=== PATIENT | female | born 1950 | race Caucasian/White ===

== ENCOUNTER 2018-07-06 13:10 | Outpatient (CLI) | payer MEDICARE, OTHER ==
[2018-07-06 14:24] LABS: FREE T4 (FREE THYROXINE) 0.9 NG/DL (0.70-1.48)
--- NOTE | 2018-07-06 19:35 | Diagnostic Imaging Report ---
PROCEDURE: US Thyroid. TECHNIQUE: Multiple real-time grayscale images were obtained of the thyroid in various projections. INDICATION: Thyroid cyst. COMPARISON: There are no prior studies available for comparison. FINDINGS: The thyroid gland is not enlarged. The right lobe measures 4.0 x 1.5 x 1.5 cm while the left lobe is estimated to be 3.1 x 1.7 x 1.4 cm (normal gland size 4-5 x 2 x 2 cm or less). In the superior pole of the right lobe, there is a small 3 x 2 x 2 mm hypoechoic area with a small echogenic density along the periphery. This finding is of uncertain etiology although most likely a benign process. The lobes of the thyroid are otherwise homogeneous. The isthmus is unremarkable. IMPRESSION: 1. The thyroid gland is not enlarged. 2. The minute hypoechoic area in the right lobe of the thyroid is of uncertain etiology although most likely benign. If further evaluation of this finding is desired, then a short-term (six-month) followup ultrasound exam would be recommended. Dictated by: Dictated on workstation # [id number]
== END 2018-07-06 14:45 | disposition home or self-care (01) ==
LOC: RAD 13:10
PROVIDERS: ATTEND Otolaryngology Otolaryngology/Facial Plastic Surgery
DX: E04.1 Nontoxic single thyroid nodule (principal); G47.33 Obstructive sleep apnea (adult) (pediatric)
CPT/HCPCS: 36415; 76536; 84439; 84443

== ENCOUNTER 2018-08-06 20:19 | Outpatient (CLI) | payer MEDICARE, OTHER | END 2018-08-07 06:20 | disposition home or self-care (01) | LOC: SLEEP 20:19 | PROVIDERS: ATTEND Otolaryngology Otolaryngology/Facial Plastic Surgery | DX: G47.33 Obstructive sleep apnea (adult) (pediatric) (principal) | CPT/HCPCS: 95811 ==

== ENCOUNTER 2018-11-27 21:42 | Outpatient (CLI) | payer MEDICARE, OTHER | END 2018-11-28 06:45 | disposition home or self-care (01) | LOC: SLEEP 21:42 | PROVIDERS: ATTEND Otolaryngology Otolaryngology/Facial Plastic Surgery | DX: G47.33 Obstructive sleep apnea (adult) (pediatric) (principal) | CPT/HCPCS: 95811 ==

== ENCOUNTER → 2021-03-22 | Outpatient (CLI) | payer MEDICARE, OTHER ==
--- NOTE | 2021-03-23 09:36 | Diagnostic Imaging Report ---
EXAMINATION: Digital mammogram bilateral screening with CAD. INDICATION: Screening. COMPARISON: This study was compared to the prior exams of 03/20/2020 and 02/26/2019. PERSONAL HISTORY: At this time, there are no current complaints. FINDINGS: There are scattered fibroglandular densities in both breasts which could obscure a lesion. Overall, there does not appear to have been any significant change when compared to the prior exam. No primary or secondary sign of malignancy is noted. Small benign-appearing nodular densities are again seen in the left breast. IMPRESSION: There is no evidence for malignancy. ACR BI-RADS Category 1: Negative. Result letter will be mailed to the patient. Note: At least 10% of breast cancer is not imaged by mammography. Dictated by: Dictated on workstation # [id number]
== END ==
LOC: RAD 11:00
PROVIDERS: ATTEND Physician Assistant
DX: Z12.31 Encounter for screening mammogram for malignant neoplasm of breast (principal)
CPT/HCPCS: 77063; 77067

== ENCOUNTER → 2021-04-01 | Outpatient (CLI) | payer MEDICARE, OTHER ==
--- NOTE | 2021-04-01 13:47 | Diagnostic Imaging Report ---
PROCEDURE: US Thyroid. TECHNIQUE: Multiple real-time grayscale images were obtained of the thyroid in various projections. INDICATION: Thyroid mass. Compared with study 07/06/2018. FINDINGS: Findings of right thyroid lobe measured 4.2 x 1.5 x 1.6 cm, it showed normal color Doppler blood flow. In the upper pole there is a mixed echotexture, a tiny circumscribed stable benign 5 mm nodule with a likely benign calcification. Within the lower pole of the right thyroid lobe, there is a hypoechoic area with some curvilinear zones of internal hyperechogenicity and measures a maximal diameter of 8 mm. This is not appreciable on the prior and despite its size of being less than 1 cm, we should consider this a new lesion, I do feel a one-year followup is appropriate for this TI-RADS 4 lesion. The left thyroid lobe is nonfocal, stable and normal in size. No solid or cystic mass. The isthmus normal. There is normal color Doppler blood flow. IMPRESSION: 1. Newly apparent hypoechoic 8 mm nodule. There is likely some curvilinear internal calcifications that have become apparent in the lower pole of the right lobe despite its small size given its apparent development, a one-year followup is recommended for this TI-RADS 4 lesion. 2. Additional stable 5 mm benign nodule right lobe incidentally noted with negative left lobe. Dictated by: Dictated on workstation # [id number]
--- NOTE | 2021-04-01 16:02 | Diagnostic Imaging Report ---
INDICATION: Hypercalcemia. EXAMINATION: SPECT-CT parathyroid scan. 20.5 mCi of technetium 99m sestamibi was given. A few CT images were reconstructed and reviewed. There is activity in the salivary glands. There does not appear to be any abnormal activity in the thyroid bed or elsewhere. IMPRESSION: Unremarkable parathyroid SPECT scan. Dictated by: Dictated on workstation # [id number]
== END ==
LOC: RAD 12:00
PROVIDERS: ATTEND Nurse Practitioner Family
DX: E04.1 Nontoxic single thyroid nodule (principal); E83.52 Hypercalcemia
CPT/HCPCS: 76536; 78072; A9500

== ENCOUNTER → 2021-05-31 | Outpatient (CLI) | payer MEDICARE ==
[~2021-05-31] MED LIST: GADOTERATE 0.5 MMOL/ML (CLARISCAN) 20 ML VIAL IV ONE
--- NOTE | 2021-05-31 11:27 | Diagnostic Imaging Report ---
PROCEDURE: MR imaging of the brain with and without contrast. TECHNIQUE: Multiplanar, multisequence MR imaging of the brain was performed with and without contrast. INDICATION: Increasing headaches. No prior studies are available for comparison. The ventricles and sulci are within normal limits. There are moderate periventricular and subcortical white matter changes noted consistent with chronic microvascular ischemia. No diffusion restriction is identified. No acute intra-axial or extra-axial hemorrhage is detected. No abnormal enhancement is identified following contrast administration. Corpus callosum is unremarkable. The sella and parasellar structures are unremarkable. IMPRESSION: Changes of chronic microvascular ischemia. The study is otherwise unremarkable. Dictated by: Dictated on workstation # [id number]
== END ==
LOC: RAD 10:15
PROVIDERS: ATTEND Nurse Practitioner Family
DX: I67.82 Cerebral ischemia (principal)
CPT/HCPCS: 70553

== ENCOUNTER 2021-08-15 08:20 | Inpatient (IN) | payer MEDICARE ==
[~2021-08-15] VITALS: Ht 154 cm; Wt 111.6 kg
[2021-08-15] MEDS ORDERED: LACTATED RINGERS 1,000 ML IV ONE (08:45)
[2021-08-15 08:55] LABS: BASOPHILS % (AUTO) 0 % (0-10); EOSINOPHILS % (AUTO) 0 % (0-10); HEMATOCRIT 37 % (35-52); HEMOGLOBIN 11.9 g/dL (11.5-16.0); LYMPHOCYTES # (AUTO) 0.8 10^3/uL (1.0-4.0); LYMPHOCYTES % (AUTO) 6 % (12-44); MEAN CORPUSCULAR HEMOGLOBIN 27 pg (25-34); MEAN CORPUSCULAR HGB CONC 32 g/dL (32-36); MEAN CORPUSCULAR VOLUME 84 fL (80-99); MEAN PLATELET VOLUME 11.3 fL (9.0-12.2); MONOCYTES # (AUTO) 0.5 10^3/uL (0.0-1.0); MONOCYTES % (AUTO) 4 % (0-12); NEUTROPHILS # (AUTO) 10.6 10^3/uL (1.8-7.8); NEUTROPHILS % (AUTO) 89 % (42-75); PLATELET COUNT 311 10^3/uL (130-400); WHITE BLOOD COUNT 11.9 10^3/uL (4.3-11.0)
[2021-08-15] MEDS ORDERED: RT-ALBUTEROL HFA 8.5 GM INHALER IH STA (08:58)
[2021-08-15] MEDS ORDERED: ONDANSETRON 4 MG/2 ML (SDV) Z0FRAN IVP ONE ×2 (09:00→09:45)
[2021-08-15 09:04] LABS: ALBUMIN 3.8 GM/DL (3.2-4.5)
[2021-08-15 09:05] LABS: INR 1.2 (0.8-1.4); POTASSIUM 2.9 MMOL/L (3.6-5.0); PROTHROMBIN TIME PATIENT 15.7 SEC (12.2-14.7)
[2021-08-15 09:06] LABS: CALCIUM 8.9 MG/DL (8.5-10.1)
[2021-08-15 09:07] LABS: TOTAL PROTEIN 7.3 GM/DL (6.4-8.2)
[2021-08-15 09:09] LABS: BILIRUBIN,TOTAL 0.6 MG/DL (0.1-1.0)
[2021-08-15 09:11] LABS: CREATININE SERUM 0.88 MG/DL (0.60-1.30)
[2021-08-15 09:25] LABS: LYMPHOCYTES % (MANUAL) 7 %; MONOCYTES % (MANUAL) 7 %; NEUTROPHILS % (MANUAL) 86 %; RBC MORPH NORMAL
[2021-08-15] MEDS ORDERED: POTASSIUM CL 10MEQ/50ML IVPB 50 ML IV ONE (09:30)
[2021-08-15] MEDS ORDERED: NS IV 1000 ML 1,000 ML IV SCH (09:30)
[2021-08-15] MEDS ORDERED: LORazepam INJ 2 MG/ML (ATIVAN) VIAL IVP ONE (09:45)
--- NOTE | 2021-08-15 09:47 | Diagnostic Imaging Report ---
INDICATION: Shortness of air, nausea, vomiting, diarrhea for approximately one week. Fever. Decreased oxygen saturation. TECHNIQUE: Two view chest 9:37 AM CORRELATION STUDY: None FINDINGS: Heart size is enlarged. There is abnormal prominent masslike appearance about the superior mediastinum, left slightly greater than right. Vasculature overall appears prominent. Rather extensive asymmetric infiltrate-like opacity particularly at the right middle lobe but also with scattered pulmonary parenchymal densities including some areas of nodularity within the remaining lung quintanilla. Visualized osseous structures are unremarkable. IMPRESSION: 1. Multifocal pulmonary infiltrate like opacities most pronounced in the right middle lobe most worrisome for pneumonia. 2. Some scattered areas of nodularity within the lung quintanilla. Additionally, there is abnormal soft tissue masslike appearance about the superior mediastinum. Does raise concern for potential mass and/or lymphadenopathy until proven otherwise. Neoplasm is definitely in the differential at this time. Dictated by: Dictated on workstation # [id number]
[2021-08-15] MEDS ORDERED: ACETAMINOPHEN 500 MG TAB (TYLENOL) ONE (10:11)
[2021-08-15] MEDS ORDERED: ACETAMINOPHEN 500 MG TAB (TYLENOL) PO ONE (10:15)
[2021-08-15] MEDS ORDERED: cefTRIAXone 1 GM PRE-MIX 50 ML IV STA (10:18)
--- NOTE | 2021-08-15 10:27 | ED General ---
General Chief Complaint: COVID19 Suspect/Confirmed Stated Complaint: SOA - COUGH - CONGESTION - BODY ACHES Nursing Triage Note: PT TO RM 10 CO OF SOA, N/V/D FOR APPROX 1WEEK. PT ALSO HAS TEMP 101.6. O2 SAT 84%RM AIR Source of Information: Patient Exam Limitations: No Limitations History of Present Illness Date Seen by Provider: Aug 15, 2021 Time Seen by Provider: 08:27 Initial Comments This 70-year-old woman presents to the emergency room with 1 week of illness including cough, fever up to 101, vomiting, and diarrhea. She is febrile at present with an oxygen saturation of 84% on room air. She has been vaccinated for influenza and COVID-19. She has received boosters for COVID-19. 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 Her primary care providers are [facility] Lucio and Dr. Moffett. She sees an web development director in [place]. Allergies and Home Medications Allergies Coded Allergies: No Known Drug Allergies (Unverified , 05/31/21) Patient Home Medication List Home Medication List Reviewed: Yes Alprazolam (Alprazolam) 0.5 Mg Tablet, 0.5 MG PO HS PRN for SLEEP, (Reported) Entered as Reported by: DEXTER KIM on 08/15/211253 Last Action: Reviewed Amlodipine Besylate (Amlodipine Besylate) 10 Mg Tablet, 10 MG PO DAILY, (Reported) Entered as Reported by: DONNELL WRIGHT on 08/16/21 1149 Last Action: Reviewed Atorvastatin Calcium (Atorvastatin Calcium) 80 Mg Tablet, 80 MG PO DAILY, (Reported) Entered as Reported by: DEXTER KIM on 08/15/21 125 Last Action: Reviewed Bupropion HCl (Bupropion Xl) 150 Mg Tab.er.24h, 150 MG PO DAILY, (Reported) Entered as Reported by: DEXTER KIM on 08/15/21 125 Last Action: Reviewed Calcium Carbonate (Tums) 200 Mg Calcium (500 Mg) Tab.chew, 200 MG PO DAILY PRN for HEARTBURN, (Reported) Entered as Reported by: DONNELL WRIGHT on 08/16/21 1152 Last Action: Reviewed Carvedilol (Carvedilol) 12.5 Mg Tablet, 12.5 MG PO BID, (Reported) Entered as Reported by: DONNELL WRIGHT on 08/16/211148 Last Action: Reviewed Citalopram Hydrobromide (Citalopram HBr) 20 Mg Tablet, 20 MG PO BID, (Reported) Entered as Reported by: DEXTER KIM on 08/15/211253 Last Action: Reviewed Dicyclomine HCl (Dicyclomine HCl) 20 Mg Tablet, 20 MG PO HS, (Reported) Entered as Reported by: DEXTER KIM on 08/15/211253 Last Action: Reviewed Docusate Sodium (Stool Softener) 100 Mg Capsule, 100 MG PO DAILY PRN for CONSTIPATION-1ST LINE, (Reported) Entered as Reported by: DONNELL WRIGHT on 08/16/21 115 Last Action: Reviewed Fluticasone Propionate (Fluticasone Propionate) 50 Mcg/Actuation [place].susp, 1 SPRAY NS DAILY PRN for CONGESTION, (Reported) Entered as Reported by: DEXTER KIM on 08/15/211253 Last Action: Reviewed Glucosam HCl/Chondro Bah A/C/Mn (Glucosamine-Chondroitin Cap) 1 Each Capsule, 1 EACH PO DAILY, (Reported) Entered as Reported by: DONNELL WRIGHT on 08/16/211148 Last Action: Reviewed Hydralazine HCl (Hydralazine HCl) 50 Mg Tablet, 50 MG PO TID, (Reported) Entered as Reported by: DEXTER KIM on 08/15/211253 Last Action: Reviewed Hydrocodone/Acetaminophen (Hydrocodone-Acetamin 7.5-325) 7.5 Mg-325 Mg Tablet, 1 EACH PO Q6H PRN for PAIN-MODERATE (5-7), (Reported) Entered as Reported by: DONNELL WRIGHT on 08/16/211148 Last Action: Reviewed Levalbuterol Tartrate (Xopenex Hfa) 45 Mcg/Actuation Hfa.aer.ad, 1 PUFF PO DAILY PRN for SHORTNESS OF BREATH, (Reported) Entered as Reported by: DEXTER KIM on 08/15/211253 Last Action: Reviewed Loratadine (Loratadine) 10 Mg Tablet, 10 MG PO DAILY PRN for ALLERGIES, (Reported) Entered as Reported by: DONNELL WRIGHT on 7/11/22 1149 Last Action: Reviewed Magnesium Oxide (Magnesium) 250 Mg Tablet, 250 MG PO DAILY, (Reported) Entered as Reported by: DONNELL WRIGHT on 08/16/21 1151 Last Action: Reviewed Olmesartan Medoxomil (Olmesartan Medoxomil) 20 Mg Tablet, 20 MG PO DAILY, (Reported) Entered as Reported by: DEXTER KIM on 08/15/21 1254 Last Action: Reviewed Omeprazole (Omeprazole) 20 Mg Capsule.dr, 20 MG PO DAILY, (Reported) Entered as Reported by: DONNELL WRIGHT on 08/16/21 1150 Last Action: Reviewed Pantoprazole Sodium (Pantoprazole Sodium) 40 Mg Tablet.dr, 40 MG PO HS, (Reported) Entered as Reported by: DONNELL WRIGHT on 08/16/21 1204 Last Action: Reviewed Valsartan (Valsartan) 320 Mg Tablet, 320 MG PO DAILY, (Reported) Entered as Reported by: DEXTER KIM on 08/15/21 125 Last Action: Reviewed Discontinued Medications Amlodipine/Atorvastatin (Amlodipine-Atorvast 10-10 mg) 10 Mg-10 Mg Tablet, 1 EACH PO DAILY, (Reported) Discontinued Reason: Prescription changed Entered as Reported by: DEXTER KIM on 08/15/211253 Last Action: New Order Carvedilol (Carvedilol) 25 Mg Tablet, 25 MG PO BID, (Reported) Discontinued Reason: Prescription changed Entered as Reported by: DEXTER KIM on 08/15/211253 Last Action: New Order Review of Systems Review of Systems Constitutional: see HPI EENTM: no symptoms reported Respiratory: see HPI Cardiovascular: no symptoms reported Gastrointestinal: see HPI Genitourinary: no symptoms reported : No Musculoskeletal: no symptoms reported Skin: no symptoms reported Psychiatric/Neurological: No Symptoms Reported Hematologic/Lymphatic: No Symptoms Reported Immunological/Allergic: no symptoms reported Past Rdflrcj-Mwnrnr-Recyba Hx Patient Social History Tobacco Use?: No Substance use?: No Alcohol Use?: No Pt feels they are or have been: No Immunizations Up To Date Influenza Vaccine Up-to-Date: Yes; Up-to-Date First/Initial COVID19 Vaccinat: 2020 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 Past Medical History Surgery/Hospitalization HX: R KNEE, WRIST, HYSTERECTOMY, PARATHYROID REMOVED JUNE 2021 Surgeries: Yes (partial parathryroid resection) Hysterectomy, Orthopedic Respiratory: Yes Asthma Cardiac: Yes Hypertension Neurological: No : No Genitourinary: No Gastrointestinal: No Musculoskeletal: No Endocrine: Yes (possible pheochromocytoma) Parathyroid Disease HEENT: No Cancer: No Psychosocial: No Integumentary: No Physical Exam-Suspected Sepsis Physical Exam Vital Signs Vital Signs - First Documented 08/15/21 08/16/21 08:20 01:45 Temp 38.8 Pulse 112 Resp 42 B/P (MAP) 180/73 (108) Pulse Ox 92 O2 Delivery Nasal Cannula O2 Flow Rate 3.00 FiO2 32 Capillary Refill : Less Than 3 Seconds Blood Pressure Mean: 108 Height, Weight, BMI Height: '" Weight: lbs. oz. kg; 38.00 BMI Method: General Appearance: No Apparent Distress, WD/WN HEENT: PERRL/EOMI, Normal ENT Inspection Neck: Normal Inspection Respiratory: No Accessory Muscle Use, No Respiratory Distress, Decreased Breath Sounds (Diminished breath sounds throughout) Cardiovascular: No Edema, No Murmur, Tachycardia Gastrointestinal: Soft Extremity: Normal Inspection, Non Tender, No Pedal Edema Neurologic/Psychiatric: Alert, Oriented x3, No Motor/Sensory Deficits, Normal Mood/Affect, purchasing director II-XII Norm as Tested Skin: normal color, warm/dry Focused Exam Sepsis Stage: Severe Sepsis Possible Source: Pulmonary Lactate Level 08/15/21 08:32: Lactic Acid Level 2.55*H 08/15/21 12:00: Lactic Acid Level 1.06 Time of Focused Exam: 10:20 Respiratory: No Accessory Muscle Use, No Respiratory Distress, Decreased Breath Sounds Cardiovascular: Regular Rate, Rhythm, No Edema, No Murmur Skin: normal color, warm/dry Lactic Acid Level Within 3hrs of presentation: Admin fluids, Admin ABX, Blood cultures prior to ABX's, Lactate level Progress/Results/Core Measures Suspected Sepsis SIRS Temperature: Pulse: 112 Respiratory Rate: 42 Laboratory Tests 08/15/21 08:32: White Blood Count 11.9H 08/16/21 06:48: White Blood Count 8.8 08/17/21 05:27: White Blood Count 8.9 Blood Pressure 180 /73 Mean: 108 08/15/21 08:32: Lactic Acid Level 2.55*H 08/15/21 12:00: Lactic Acid Level 1.06 Laboratory Tests 08/15/21 08:32: Creatinine 0.88, INR Comment 1.2, Platelet Count 311, Total Bilirubin 0.6 08/16/21 06:48: Creatinine 0.82, Platelet Count 241, Total Bilirubin 0.5 08/17/21 05:27: Creatinine 0.74, Platelet Count 264, Total Bilirubin 0.5 Results/Orders Lab Results Laboratory Tests Test 08/16/21 06:48 08/17/21 05:27 Range/Units White Blood Count 8.8 8.9 4.3-11.0 10^3/uL Red Blood Count 3.39 L 3.35 L 3.80-5.11 10^6/uL Hemoglobin 9.1 #L 9.2 L 11.5-16.0 g/dL Hematocrit 29 L 28 L 35-52 % Mean Corpuscular Volume 86 83 80-99 fL Mean Corpuscular Hemoglobin 27 28 25-34 pg Mean Corpuscular Hemoglobin Concent 31 L 33 32-36 g/dL Red Cell Distribution Width 14.6 H 14.7 H 10.0-14.5 % Platelet Count 241 264 130-400 10^3/uL Mean Platelet Volume 11.0 11.6 9.0-12.2 fL Immature Granulocyte % (Auto) 1 0 % Neutrophils (%) (Auto) 83 H 85 H 42-75 % Lymphocytes (%) (Auto) 11 L 9 L 12-44 % Monocytes (%) (Auto) 5 5 0-12 % Eosinophils (%) (Auto) 0 0 0-10 % Basophils (%) (Auto) 0 0 0-10 % Neutrophils # (Auto) 7.3 7.5 1.8-7.8 10^3/uL Lymphocytes # (Auto) 1.0 0.8 L 1.0-4.0 10^3/uL Monocytes # (Auto) 0.4 0.5 0.0-1.0 10^3/uL Eosinophils # (Auto) 0.0 0.0 0.0-0.3 10^3/uL Basophils # (Auto) 0.0 0.0 0.0-0.1 10^3/uL Immature Granulocyte # (Auto) 0.1 0.0 0.0-0.1 10^3/uL Sodium Level 135 135 135-145 MMOL/L Potassium Level 3.9 3.1 L 3.6-5.0 MMOL/L Chloride Level 103 104 98-107 MMOL/L Carbon Dioxide Level 20 L 20 L 21-32 MMOL/L Anion Gap 12 11 5-14 MMOL/L Blood Urea Nitrogen 14 13 7-18 MG/DL Creatinine 0.82 0.74 0.60-1.30 MG/DL Estimat Glomerular Filtration Rate 77 88 BUN/Creatinine Ratio 17 18 Glucose Level 95 92 70-105 MG/DL Calcium Level 8.0 L 8.4 L 8.5-10.1 MG/DL Corrected Calcium 8.8 9.1 8.5-10.1 MG/DL Total Bilirubin 0.5 0.5 0.1-1.0 MG/DL Aspartate Amino Transf (AST/SGOT) 50 H 50 H 5-34 U/L Alanine Aminotransferase (ALT/SGPT) 32 33 0-55 U/L Alkaline Phosphatase 73 99 40-136 U/L B-Type Natriuretic Peptide 231.8 H <100.0 PG/ML Total Protein 5.8 L 6.2 L 6.4-8.2 GM/DL Albumin 3.0 L 3.1 L 3.2-4.5 GM/DL Procalcitonin 1.71 H <0.10 NG/ML My Orders Medications Given in ED Vital Signs/I&O 08/17/21 08/17/21 08/17/21 08/17/21 07:00 07:15 07:49 08:46 Temp 37.2 Pulse 92 94 95 Resp 25 28 B/P (MAP) 132/74 (93) Pulse Ox 95 97 O2 Delivery NIV Bilevel NIV Bilevel O2 Flow Rate 65.00 65.00 08/17/21 08/17/21 08/17/21 08/17/21 10:36 11:48 13:00 14:42 Temp 36.4 Pulse 99 97 Resp 20 B/P (MAP) 122/72 (89) Pulse Ox 94 94 96 O2 Delivery Vapotherm Vapotherm Vapotherm O2 Flow Rate 30.00 90.00 30.00 30.00 FiO2 90 90 08/17/21 08/17/21 16:27 18:24 Temp 37.1 Pulse 100 Resp 18 B/P (MAP) 113/69 (84) Pulse Ox 97 96 O2 Delivery Vapotherm Vapotherm O2 Flow Rate 90.00 30.00 30.00 FiO2 90 Capillary Refill : Less Than 3 Seconds Blood Pressure Mean: 108 Progress Note : Progress Note Septic work-up was pursued. Influenza and COVID screening were negative. Patient was found to have pneumonia and was treated accordingly with Rocephin and azithromycin after blood cultures and lactic acid were drawn. She received Zofran, Tylenol, and albuterol. Case was reviewed with Dr. Roberts. Patient and Dr. Roberts were advised that x-ray suggests further follow-up imaging is recommended to differentiate abnormal chest x-ray findings. 2 L of IV fluid were infused. Potassium replacement was initiated by IV route. Diagnostic Imaging Diagonstic Imaging: Xray Plain Films/CT/US/NM/MRI: chest Comments NAME: JADON MYERS [facility] REC#: [id number] PT STATUS: REG ER : 1950 PHYSICIAN: JOSE RIVERA MD ADMIT DATE: 08/15/21/ER Signed Date of Exam:08/15/21 CHEST PA/LAT (2 VIEW) INDICATION: Shortness of air, nausea, vomiting, diarrhea for approximately one week. Fever. Decreased oxygen saturation. TECHNIQUE: Two view chest 9:37 AM CORRELATION STUDY: None FINDINGS: Heart size is enlarged. There is abnormal prominent masslike appearance about the superior mediastinum, left slightly greater than right. Vasculature overall appears prominent. Rather extensive asymmetric infiltrate-like opacity particularly at the right middle lobe but also with scattered pulmonary parenchymal densities including some areas of nodularity within the remaining lung quintanilla. Visualized osseous structures are unremarkable. IMPRESSION: 1. Multifocal pulmonary infiltrate like opacities most pronounced in the right middle lobe most worrisome for pneumonia. 2. Some scattered areas of nodularity within the lung quintanilla. Additionally, there is abnormal soft tissue masslike appearance about the superior mediastinum. Does raise concern for potential mass and/or lymphadenopathy until proven otherwise. Neoplasm is definitely in the differential at this time. Dictated by: Dictated on workstation # [id number] Dict: 08/15/21 0939 Trans: 08/15/21 1018 CLARITZA [id number] Interpreted by: BENJAMIN VO DO Electronically signed by: BENJAMIN VO DO 08/15/21 1018 Departure Communication (Admissions) Time/Spoke to Admitting Phy: 10:23 Dr. Roberts Impression Primary Impression: Severe sepsis Additional Impressions: Pneumonia Qualified Codes: J18.9 - Pneumonia, unspecified organism Hypokalemia Hypoxia Disposition: ADMITTED INPATIENT Condition: Stable Admissions Decision to Admit Reason: Admit from ER (General) Decision to Admit/Date: Aug 15, 2021 Time/Decision to Admit Time: 10:23 Departure-Patient Inst. Referrals: ARNOLDO MOFFETT MD (PCP/Family) Primary Care Physician Copy Copies To 1: SAVAGE LUCIO PA Copies To 2: ARNOLDO MOFFETT MD, JOSHUA T MD Aug 15, 2021 10:27
[2021-08-15] MEDS ORDERED: polyethylene glycoL POWDER 17 GM (MIRALAX) PACK PO PRN (11:45)
[2021-08-15] MEDS ORDERED: CALCIUM CARBONATE 500 MG (TUMS) TAB.CHEW PO PRN (11:45)
[2021-08-15] MEDS ORDERED: ONDANSETRON 4 MG (ZOFRAN) ORAL DISSOLVE TAB PO PRN (11:45)
[2021-08-15] MEDS ORDERED: diphenhydrAMINE 25 MG TAB (BENADRYL) PO PRN (11:45)
[2021-08-15] MEDS ORDERED: BISACODYL 10 MG SUPP (DULCOLAX) PR PRN (11:45)
[2021-08-15] MEDS ORDERED: LACTULOSE SYRUP 10GM/15ML (ENULOSE) 30ML UDC PO PRN (11:45)
[2021-08-15] MEDS ORDERED: MILK OF MAGNESIA 400 MG/5 ML 30 ML UDC PO PRN (11:45)
[2021-08-15] MEDS ORDERED: diphenhydrAMINE 50 MG/ML INJ (BENADRYL) IVP PRN (11:45)
[2021-08-15] MEDS ORDERED: ANTACID SUSP 30 ML UDC (MYLANTA) PO PRN (11:45)
[2021-08-15] MEDS ORDERED: ONDANSETRON 4 MG/2 ML (SDV) Z0FRAN IV PRN (11:45)
--- NOTE | 2021-08-15 12:08 | Diagnostic Imaging Report ---
PROCEDURE: CT chest without contrast. TECHNIQUE: Multiple contiguous axial images were obtained through the chest without the use of intravenous contrast. Auto Exposure Controls were utilized during the CT exam to meet ALARA standards for radiation dose reduction. INDICATION: Shortness of air. COMPARISON: Chest radiograph 08/15/2021. FINDINGS: Multifocal dense airspace consolidation with air bronchograms consistent with pneumonitis. This is greatest in the perihilar upper lobes, right middle lobe and dependent right lower lobe. Additionally, there are several scattered groundglass opacities in both lungs. Precarinal lymphadenopathy measuring up 1.1 cm in short axis dimension. Small bilateral pleural effusions, greater on the right. No pneumothorax. Normal heart size. No acute osseous findings. Visualized upper abdominal contents are unremarkable. IMPRESSION: 1. Multifocal groundglass opacities and large regions of dense consolidation with air bronchograms is most consistent with pneumonitis. Mediastinal lymphadenopathy may be reactive. Recommend continued follow-up. 2. Small bilateral pleural effusions, greater on the right. Dictated by: Dictated on workstation # [id number]
[2021-08-15] MEDS ORDERED: hydrALAZINE (APRESOLINE) 25 MG TAB PO ONE (12:15)
[2021-08-15] MEDS ORDERED: amLODIPine 10 MG (NORVASC) TAB PO ONE (12:15)
[2021-08-15] MEDS ORDERED: hydrALAZINE (APESOLINE) 20 MG/ML VIAL IV PRN (12:15)
[2021-08-15] MEDS: POTASSIUM CL 10MEQ/50ML IVPB 50 ML IV SCH ×4 (12:17→14:51)
[2021-08-15] MEDS: NS IV 1000 ML 1,000 ML IV SCH ×2 (12:17→14:51)
[2021-08-15] MEDS: ENOXAPARIN 40 MG/0.4 ML (LOVENOX) SYR SC SCH (12:31)
[2021-08-15] MEDS: hydrALAZINE (APRESOLINE) 25 MG TAB PO SCH ×2 (12:32→21:25)
[2021-08-15] MEDS ORDERED: BUPR150T24 PO (12:54)
[2021-08-15] MEDS ORDERED: DICY20TA PO (12:54)
[2021-08-15] MEDS ORDERED: PANT40SU PO (12:54)
[2021-08-15] MEDS ORDERED: HYDR-3820 PO (12:54)
[2021-08-15] MEDS ORDERED: OLME20TA24 PO (12:54)
[2021-08-15] MEDS ORDERED: ALPR0.5T7 PO (12:54)
[2021-08-15] MEDS ORDERED: HYDR-3924 PO (12:54)
[2021-08-15] MEDS ORDERED: ATOR80TA76 PO (12:54)
[2021-08-15] MEDS ORDERED: LORA-53 PO (12:54)
[2021-08-15] MEDS ORDERED: CITA20TA9 PO (12:54)
[2021-08-15] MEDS ORDERED: FLUT15.845 NS (12:54)
[2021-08-15] MEDS ORDERED: VALS320T15 PO (12:54)
[2021-08-15] MEDS ORDERED: CARV25TA PO (12:54)
[2021-08-15] MEDS ORDERED: NF-XOP-HFA PO (12:54)
[2021-08-15] MEDS ORDERED: AMLO-335 PO (12:54)
[2021-08-15 16:18] VITALS: BP 116/67
--- NOTE | 2021-08-15 16:42 | History & Physical-Hospitalist ---
History of Present Illness HPI/Chief Complaint Mariam Solis is a 70 year old female with PMH HTN, HLD, depression, insomnia, seasonal allergies, morbid obesity, who presented with shortness of breath. She reports having fevers and chills. She has had a cough. She denies chest pain. She denies abdominal pain. She denies nausea, vomiting, diarrhea. She was hospitalized one month ago in due to hypertension. There was concern for pheochromocytoma and she is taking several blood pressure medications and awaiting further lab results. Source: patient Exam Limitations: no limitations Date Seen 08/15/21 Time Seen by a Provider: 12:00 Attending Physician Chris Madrigal MD PCP Admitting Physician: Stevo Bush MD Attending Physician: Stevo Bush MD Referring Physician Date of Admission Aug 15, 2021 at 10:30 Home Medications & Allergies Home Medications Reviewed patient Home Medication Reconciliation performed by pharmacy medication reconciliations fresh foods technician and/or nursing. Patients Allergies have been reviewed. Allergies Allergies Coded Allergies No Known Drug Allergies (Unverified05/31/21) Past Buznfte-Loftlk-Soefjq Hx Patient Social History Tobacco Use?: No Use of E-Cig and/or Vaping dev: No Substance use?: No Alcohol Use?: No Pt feels they are or have been: No Immunizations Up To Date First/Initial COVID19 Vaccinat: 2020 Current Status status: No status: No Advance Directives: No Communicates: Verbally Primary Language: Romansh Preferred Spoken Language: Romansh Is interpretation needed?: No Sensory deficits: Vision impairment Implanted or Applied Medical D: None Past Medical History Hypertension Family Medical History No Pertinent Family Hx Review of Systems Constitutional: chills, fever EENTM: no symptoms reported Respiratory: cough, short of breath Cardiovascular: no symptoms reported Gastrointestinal: no symptoms reported Genitourinary: no symptoms reported Musculoskeletal: no symptoms reported Skin: no symptoms reported Physical Exam Physical Exam Vital Signs Vital Signs - First Documented 08/15/21 08:20 Temp 38.8 Pulse 112 Resp 42 B/P (MAP) 180/73 (108) Pulse Ox 92 O2 Delivery Nasal Cannula O2 Flow Rate 3.00 Capillary Refill : Less Than 3 Seconds Height, Weight, BMI Height: '" Weight: lbs. oz. kg; 44.27 BMI Method: General Appearance: No Apparent Distress, Obese HEENT: PERRL/EOMI, Pharynx Normal Neck: Normal Inspection, Supple Respiratory: No Respiratory Distress, Crackles Cardiovascular: Regular Rate, Rhythm, No Edema, No Murmur Gastrointestinal: Normal Bowel Sounds, Non Tender, Soft Extremity: Normal Inspection, No Pedal Edema Neurologic/Psychiatric: Alert, Oriented x3, No Motor/Sensory Deficits, Normal Mood/Affect Skin: Normal Color, Warm/Dry Results Results/Procedures Labs Laboratory Tests 08/15/21 08:32 Patient resulted labs reviewed. Imaging: Reviewed Imaging Report Assessment/Plan Admission Diagnosis Severe sepsis due to pneumonia Admission Status: Inpatient Order (span 2 midnights) Reason for Inpatient Admission: IV antibiotics Assessment and Plan Severe sepsis Multifocal pneumonia Lactic acidosis SIRS+ with fever and tachycardia Chest imaging consistent with multifocal pneumonia Lactic acid >2 Started on Rocephin and Azithromycin Supplemental oxygen as needed IV fluids Hypertension Possible pheochromocytoma Resume Coreg, Amlodipine, and Hydralazine Holding Valsartan IV Hydralazine as needed HLD GERD Depression Continue home meds Morbid obesity Clinically significant, no acute management needs DVT prophylaxis: Lovenox Diagnosis/Problems Diagnosis/Problems (1) Severe sepsis Status: Acute (2) Pneumonia Status: Acute Qualifiers: Pneumonia type: due to unspecified organism Laterality: bilateral Lung location: unspecified part of lung Qualified Codes: J18.9 - Pneumonia, uns pecified organism (3) Acute respiratory failure with hypoxia Status: Acute (4) Lactic acidosis Status: Acute (5) HTN (hypertension) Status: Chronic (6) GERD (gastroesophageal reflux disease) Status: Chronic (7) HLD (hyperlipidemia) Status: Chronic (8) Depression Status: Chronic (9) Morbid obesity Status: Chronic STEVO BUSH MD Aug 15, 2021 16:42
[2021-08-15 19:44] VITALS: BP 130/80
[2021-08-15] MEDS: SENNOSIDES 8.6 MG (SENOKOT) TAB PO SCH (21:23)
[2021-08-15] MEDS: DOCUSATE SODIUM 100 MG (COLACE) CAP PO SCH (21:23)
[2021-08-15] MEDS: buPROPion 75 MG (WELLBUTRIN) TAB PO SCH (21:25)
[2021-08-15] MEDS: DICYCLOMINE 10 MG (BENTYL) CAP PO SCH (21:25)
[2021-08-15] MEDS: MELATONIN 3 MG TABLET PO PRN (21:26)
[2021-08-15] MEDS: ALPRAZolam 0.5 MG (XANAX) TAB PO PRN (21:34)
[2021-08-16] VITALS (8 sets, daily range): BP systolic 104–180; BP diastolic 54–77
[2021-08-16] MEDS: ENOXAPARIN 40 MG/0.4 ML (LOVENOX) SYR SC SCH ×3 (00:11→23:29)
[2021-08-16] MEDS ORDERED: RT-ALBUTEROL SULF 2.5 MG/3 ML PRE-MIX VIAL INH PRN (00:30)
[2021-08-16] MEDS ORDERED: FUROSEMIDE 40 MG/4 ML INJ (LASIX) IVP ONE ×2 (00:30→17:30)
[2021-08-16] MEDS: NS IV 1000 ML 1,000 ML IV SCH ×2 (01:20→09:24)
[2021-08-16] MEDS ORDERED: RT-ALBUTEROL/IPRATROPIUM 3 ML (DUONEB) VIAL INH SCH (02:00)
[2021-08-16] MEDS ORDERED: RT-ALBUTEROL/IPRATROPIUM 3 ML (DUONEB) VIAL INH PRN (02:15)
[2021-08-16] MEDS: hydrALAZINE (APRESOLINE) 25 MG TAB PO SCH ×3 (06:13→22:57)
[2021-08-16] MEDS: DICYCLOMINE 10 MG (BENTYL) CAP PO SCH ×4 (06:14→20:01)
[2021-08-16] MEDS: RT-ALBUTEROL/IPRATROPIUM 3 ML (DUONEB) VIAL INH SCH ×5 (06:54→22:08)
[2021-08-16 06:59] LABS: BASOPHILS % (AUTO) 0 % (0-10); EOSINOPHILS % (AUTO) 0 % (0-10); HEMATOCRIT 29 % (35-52); HEMOGLOBIN 9.1 g/dL (11.5-16.0); LYMPHOCYTES % (AUTO) 11 % (12-44); MEAN CORPUSCULAR HEMOGLOBIN 27 pg (25-34); MEAN CORPUSCULAR HGB CONC 31 g/dL (32-36); MEAN CORPUSCULAR VOLUME 86 fL (80-99); MONOCYTES # (AUTO) 0.4 10^3/uL (0.0-1.0); MONOCYTES % (AUTO) 5 % (0-12); NEUTROPHILS # (AUTO) 7.3 10^3/uL (1.8-7.8); NEUTROPHILS % (AUTO) 83 % (42-75); PLATELET COUNT 241 10^3/uL (130-400); WHITE BLOOD COUNT 8.8 10^3/uL (4.3-11.0)
[2021-08-16 07:15] LABS: POTASSIUM 3.9 MMOL/L (3.6-5.0)
[2021-08-16 07:17] LABS: TOTAL PROTEIN 5.8 GM/DL (6.4-8.2)
[2021-08-16 07:19] LABS: BILIRUBIN,TOTAL 0.5 MG/DL (0.1-1.0)
[2021-08-16 07:21] LABS: CREATININE SERUM 0.82 MG/DL (0.60-1.30)
[2021-08-16] MEDS ORDERED: PHARMACY TO DOSE SQ SCH (09:00)
[2021-08-16] MEDS ORDERED: AZITHROMYCIN 250 MG TAB (ZITHROMAX) PO SCH (09:00)
--- NOTE | 2021-08-16 09:07 | Occupational Therapy Eval ---
OT Evaluation-General/PLF Medical Diagnosis Admission Date Aug 15, 2021 at 10:30 Medical Diagnosis: severe sepsis Onset Date: Aug 15, 2021 Therapy Diagnosis Therapy Diagnosis: decreased ADL status and weakness Precautions Precautions/Isolations: Standard Precautions Referral Physician: Alejandra Shelton Reason: Evaluation/Treatment Medical History Additional Medical History Admit to ED on 08/15/2021 with SOB, fevers, chills, and cough. Current History HTN, HLD, depression, insomnia, and morbid obesity Social History Home: Apartment Current Living Status: Spouse ADL-Prior Level of Function SCALE: Activities may be completed with or without assistive devices. 0-Pcuntwpyar-hxqxmyy completes the activity by him/herself with no assistance from a helper. 5-Set-up or Clean-up Assistance-helper sets up or cleans up; patient completes activity. [place] assists only prior to or following the activity. 4-Supervision or Touching Assistance-helper provides verbal cues and/or touching/steadying and/or contact guard assistance as patient completes a ctivity. Assistance may be provided throughout the activity or intermittently. 3-Partial/Moderate Assistance-helper does LESS THAN HALF the effort. [place] lifts, holds or supports trunk or limbs, but provides less than half the effort. 2-Substantial/Maximal Assistance-helper does MORE THAN HALF the effort. [place] lifts or holds trunk or limbs and provides more than half the effort. 3-Jhvvsmdlr-oztewb does ALL the effort. Patient does none of the effort to complete the activity. Or, the assistance of 2 or more helpers is required for the patient to complete the activity. If activity was not attempted, code reason: 7-Patient Refused. 9-Not Applicable-not attempted and the patient did not perform the activity before the current illness, exacerbation or injury. 10-Not Attempted due to Environmental Limitations-(lack of equipment, weather restraints, etc.). 88-Not Attempted due to Medical Conditions or Safety Concerns. ADL PLOF Comments Pt reports being IND with all ADLs at [facility], although most likely had some difficulty with tasks. She lives in a multilevel home with her spouse, where she remains on the top floor with her bedroom and bathroom. She said she does not go downstairs to the first floor d/t trouble managing stairs, so her does all the cooking and cleaning and other tasks on the first floor. She does not use any DME or AD at her PLOF. Self Care: Independent Functional Cognition: Independent OT Current Status Subjective Pt laying in bed with present upon OT arrival, agreeable to eval/tx. Pt had trouble conversing at times d/t cough and was noticeably jittery which she believes is from her morning coffee. Mental Status/Objective Patient Orientation: Person, Place, Situation Attachments: IV, Oxygen (Vapotherm) Current Upper Extremity ROM Not formally tested but observed during session and found to be WFL. Upper Extremity Coordination Slightly decreased Upper Extremity Strength grossly 3+/5 bilaterally ADL-Treatment Lower Body Dressing (QC): 3 (Min A to thread R leg into pull up ) On/Off Footwear (QC): 5 (at bed level) Toileting Hygiene (QC): 3 (Mod A overall. Required help to wipe buttocks and don pull up) Other Treatments Pt provided information about PLOF and living situation while reclining in bed. She demonstrated IND in footwear while sitting in bed, then requested to use the BSC. She required SBA for supine<>EOB and Min A to SPT to BSC d/t slight LOB. Pt's pull up and bed pad were discovered to be soiled upon transfer. She had difficulty with LBD and toileting hygiene d/t height of BSC which caused balance issues, OT lowered height at end of session. Pt noticeably SOB during self-care activities, vitals were checked and SPO2 had dropped to 87%, pt encouraged to take RB with pursed breathing, SPO2 returned to 93%. Pt SPT back to bed with CGA and required Min A to return EOB<>supine. Post tx, pt left in bed with call light in reach and all needs met. Education OT Patient Education: Correct positioning, Energy conservation, Exercise program, Modified ADL techniques, Progress toward Goal/Update tx plan, Purpose of tx/functional activities, Rehab process, Safety issues, Use of adapted equipment Teaching Recipient: Patient Teaching Methods: Discussion Response to Teaching: Verbalize Understanding OT Nursing Home Goals Granulator Machine Operator Goals Time Frame: Sep 10, 2021 Toileting Hygiene (QC): 4 Shower/Bathe Self (QC): 4 Lower Body Dressing (QC): 4 Additional Goals: 1-Demonstrate ADL Tasks, 2-Verbalize Understanding, 3- ImproveStrength/Zeenat 1=Demonstrate adherence to instructed precautions during ADL tasks. 2=Patient will verbalize/demonstrate understanding of assistive devices/ modifications for ADL. 3=Patient will improve strength/tolerance for activity to enable patient to perform ADL's. OT Education/Plan Problem List/Assessment Assessment: Decreased Activ Tolerance, Decreased UE Strength, Impaired Coordination, Impaired Funct Balance, Impaired I ADL's, Impaired Self-Care Skills Discharge Recommendations Plan/Recommendations: Continue POC Equpiment Recommendations-D/C: Extended Bath Bench Treatment Plan/Plan of Care Patient would benefit from OT for education, treatment and training to promote independence in ADL's, mobility, safety and/or upper extremity function for ADL's. Plan of Care: ADL Retraining, Functional Mobility, Group Exercise/Act as Ind, UE Funct Exercise/Act Treatment Duration: Sep 10, 2021 Frequency: 3 times per week (3-5x/wk) Estimated Hrs Per Day: .25 hour per day Rehab Potential: Fair Time/GCodes Start Time: 08:21 Stop Time: 08:44 Total Time Billed (hr/min): 23 Billed Treatment Time 1, EVM (10'), ADL (13') JUSTUS PALM OT Aug 16, 2021 09:07
[2021-08-16] MEDS: amLODIPine 10 MG (NORVASC) TAB PO SCH (09:13)
[2021-08-16] MEDS: DOCUSATE SODIUM 100 MG (COLACE) CAP PO SCH ×2 (09:14→19:53)
[2021-08-16] MEDS: SENNOSIDES 8.6 MG (SENOKOT) TAB PO SCH ×2 (09:15→19:53)
[2021-08-16] MEDS: cefTRIAXone 1 GM PRE-MIX 50 ML IV SCH (09:25)
[2021-08-16] MEDS: LORATADINE (CLARITIN) 10 MG TAB PO SCH (09:25)
[2021-08-16] MEDS: buPROPion 75 MG (WELLBUTRIN) TAB PO SCH ×2 (09:25→19:53)
[2021-08-16] MEDS: PANTOPRAZOLE 40 MG (PROTONIX) TAB PO SCH (09:26)
--- NOTE | 2021-08-16 09:52 | Physical Therapy Evaluation ---
PT Evaluation-General Medical Diagnosis Admission Date Aug 15, 2021 at 10:30 Medical Diagnosis: severe sepsis Onset Date: Aug 15, 2021 Therapy Diagnosis Therapy Diagnosis: debility/weakness Precautions Precautions/Isolations: Standard Precautions Referral Physician: Alejandra Reason for Referral: Evaluation/Treatment Medical History Pertinent Medical History: HTN Additional Medical History asthma/obesity Current History ER with cough, SOA and body aches Reviewed History: Yes Social History Home: Single Level Current Living Status: Spouse Prior Prior Level of Function SCALE: Activities may be completed with or without assistive devices. 4-Neaiuvfcwa-csntqzb completes the activity by him/herself with no assistance from a helper. 5-Set-up or Clean-up Assistance-helper sets up or cleans up; patient completes activity. [place] assists only prior to or following the activity. 4-Supervision or Touching Assistance-helper provides verbal cues and/or touching/steadying and/or contact guard assistance as patient completes activity. Assistance may be provided throughout the activity or intermittently. 3-Partial/Moderate Assistance-helper does LESS THAN HALF the effort. [place] lifts, holds or supports trunk or limbs, but provides less than half the effort. 2-Substantial/Maximal Assistance-helper does MORE THAN HALF the effort. [place] lifts or holds trunk or limbs and provides more than half the effort. 7-Gsnwiwzej-kvaqqw does ALL the effort. Patient does none of the effort to complete the activity. Or, the assistance of 2 or more helpers is required for the patient to complete the activity. If activity was not attempted, code reason: 7-Patient Refused. 9-Not Applicable-not attempted and the patient did not perform the activity before the current illness, exacerbation or injury. 10-Not Attempted due to Environmental Limitations-(lack of equipment, weather restraints, etc.). 88-Not Attempted due to Medical Conditions or Safety Concerns. Bed Mobility: 6 Transfers (B,C,W/C): 6 Gait: 6 Stairs: 6 Indoor Mobility (Ambulation): Independent Stairs: Independent Prior Devices Use: None PT Evaluation-Current Subjective Patient agrees to PT. Objective Patient Orientation: Normal For Age Attachments: Oxygen (vapotherm), IV ROM/Strength ROM Lower Extremities bilateral LE WFL Strength Lower Extremities 4-/5 grossly bilateral LE Integumentary/Posture Bowel Incontinence: No Bladder Incontinence: No Posture WFL Neuromuscular (Tone, Coordination, Reflexes) grossly intact Sensory Vision: Functional Hearing: Functional Transfers Lying to Sitting/Side of Bed(Q: 4 Sit to Stand (QC): 4 Chair/Hnl-oo-Prrrb Xfer(QC): 4 Gait Mode of Locomotion: Walk Anticipated Mode of Locomotion: Walk Walk 10 feet (QC): 4 Distance: 10' x 2 Gait Assistive Device: FWW Comments/Gait Description steady gait sequence/limited by vapotherm tubing Balance Sitting Static: Normal Sitting Dynamic: Normal Standing Static: Fair Standing Dynamic: Fair Assessment/Needs 70 y.o. female, will be seen by skilled PT to address pulmonary function with functional mobility and strengthening. Patient's SAO2 decrease with minimal activity with quick recovery. Rehab Potential: Fair PT [facility]ci Goals Fci Goals PT [facility]ci Goals Time Frame: Aug 28, 2021 Roll Left & Right (QC): 6 Sit to Lying (QC): 6 Lying-Sitting on Side/Bed(QC): 6 Sit to Stand (QC): 6 Chair/Qgc-ft-Tewdi Xfer(QC): 6 Toilet Transfer (QC): 6 Walk 10 feet (QC): 6 Walk 50ft with 2 Turns (QC): 6 Walk 150 ft (QC): 6 PT Plan Problem List Problem List: Activity Tolerance, Functional Strength, Safety, Balance, Gait, Transfer, Bed Mobility Treatment/Plan Treatment Plan: Continue Plan of Care Treatment Plan: Bed Mobility, Education, Functional Activity Zeenat, Functional Strength, Gait, Safety, Therapeutic Exercise, Transfers Treatment Duration: Aug 28, 2021 Frequency: 6 times per week Estimated Hrs Per Day: .25 hour per day Patient and/or Family Agrees t: Yes Time/GCodes Time In: 911 Time Out: 921 Total Billed Treatment Time: 10 Total Billed Treatment 1 visit EVModC 10 min FRANCIS DUBOSE PT Aug 16, 2021 09:52
[2021-08-16] MEDS ORDERED: HYDR-3817 PO (11:49)
[2021-08-16] MEDS ORDERED: CARV12.53 PO (11:49)
[2021-08-16] MEDS ORDERED: LORA10TA7 PO (11:49)
[2021-08-16] MEDS ORDERED: AMLO-251 PO (11:49)
[2021-08-16] MEDS ORDERED: GLUC1CAP7 PO (11:49)
[2021-08-16] MEDS ORDERED: OMEP20CA18 PO (11:50)
[2021-08-16] MEDS ORDERED: MAGN250T13 PO (11:51)
[2021-08-16] MEDS ORDERED: DOCU-26 PO (11:51)
[2021-08-16] MEDS ORDERED: CALC500T7 PO (11:52)
[2021-08-16] MEDS ORDERED: PANT40TA52 PO (12:04)
[2021-08-16] MEDS: ACETAMINOPHEN 325 MG TABLET PO PRN ×2 (13:07→20:02)
--- NOTE | 2021-08-16 13:43 | Progress Note - Hospitalist ---
Subjective HPI/CC On Admission Date Seen by Provider: Aug 16, 2021 Mariam Solis is a 70 year old female with PMH HTN, HLD, depression, insomnia, seasonal allergies, morbid obesity, who presented with shortness of breath. She reports having fevers and chills. She has had a cough. She denies chest pain. She denies abdominal pain. She denies nausea, vomiting, diarrhea. She was hospitalized one month ago in due to hypertension. There was concern for pheochromocytoma and she is taking several blood pressure medications and awaiting further lab results. Subjective/Events-last exam Pt report feeling better. Breathing improving but on Vapotherm. Had to go on BiPAP overnight. Focused Exam Lactate Level 08/15/21 08:32: Lactic Acid Level 2.55*H 08/15/21 12:00: Lactic Acid Level 1.06 Objective Exam Vital Signs Vital Signs Date Time Temp Pulse Resp B/P (MAP) Pulse Ox O2 Delivery O2 Flow Rate FiO2 08/16/21 12:42 36.7 108 22 162/73 (102) 91 Vapotherm 90.00 35.00 08/16/21 10:44 90 Capillary Refill : Less Than 3 Seconds General Appearance: No Apparent Distress, WD/WN Respiratory: No Accessory Muscle Use, Decreased Breath Sounds; No Wheezing Cardiovascular: Regular Rate, Rhythm, No Murmur Neurologic/Psychiatric: Alert, Oriented x3 Results/Procedures Lab Laboratory Tests 08/16/21 06:48 Patient resulted labs reviewed. Imaging: Reviewed Imaging Report Assessment/Plan Assessment and Plan Assess & Plan/Chief Complaint Severe sepsis Multifocal pneumonia Lactic acidosis On Vapotherm Chest imaging consistent with multifocal pneumonia Lactic acid >2 Continue Rocephin and Azithromycin Supplemental oxygen as needed Pulm consult Hypertension Possible pheochromocytoma Continue Coreg, Amlodipine, and Hydralazine IV Hydralazine as needed Has appt with specialist on Monday HLD GERD Depression Continue home meds Morbid obesity Clinically significant, no acute management needs DVT prophylaxis: MELISSA Beckman MD Aug 16, 2021 13:43
--- NOTE | 2021-08-16 15:35 | Pulmonary Consultation ---
History of Present Illness History of Present Illness Date Seen by Provider: Aug 16, 2021 Time Seen by Provider: 15:34 Date of Admission Available chart/ vitals / labs / Images reviewed Video assessment done using VIDYO camera, rest of exam as per RN Discussed with patient and RN , This 70-year-old woman presents to the emergency room with 1 week of illness including cough, fever up to 101, vomiting, and diarrhea. She was febrile at present with an oxygen saturation of 84% on RA = placed on 3L o2 Dx with PNA - started on ABX and admitted to hospital Given IVF and lasix last night - now on NS 125/h Overnight needed more o2 - placed on Vapotherm , but used CPAP last night Reports breathing somewhat better today Cough + , dry Still has diarrhea reports " thirsty " , but states it is " ususal " for her No chest pain , no wheezing She has been vaccinated for influenza and COVID-19. 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 She was hospitalized one month ago in due to hypertension. There was concern for pheochromocytoma and she is taking several blood pressure medications and awaiting further lab results. Resp history : No h/o asthma , copd , get BARAJAS walking in supermarket ) Chart said " h/o asthma " = patient denies + cough, chronic -dry , ( + sinur problems , no GERD) -ex smoker - minimal, 30 y ago - no occupational exposure + [facility]IKIS - on BIPAP , use q night for 3 years , can not recall pressure Denies cardiac problems , ECHO in other hospirtal 1 month ago " normal" A/P Progressive hypoxia - worsening PNA , vs volume overload , clinically does not sounds as bronchospasm - will repeat cxr , BNP and reassess fluid status - will cont to use BIPAP most of the time - CHANGE PRESSURE TO 20 /16 - as was titrated on last sleep study -add ICS for now PNA - agree with CAP coverage , but with nausea, vomiting, and diarrhea should c onsider legionella - UA AG ordered - will change to levofloxacion IV ( received z/max po already ) and follow closely Hypertension - reported Possible pheochromocytoma - as per PCP CHIKIS - cont bipap 20 /16 nightly Morbid obesity DVT prophylaxis: Lovenox Allergies and Home Medications Allergies Coded Allergies: No Known Drug Allergies (Unverified , 05/31/21) Home Medications Alprazolam 0.5 Mg Tablet, 0.5 MG PO HS PRN for SLEEP, (Reported) Amlodipine Besylate 10 Mg Tablet, 10 MG PO DAILY, (Reported) Atorvastatin Calcium 80 Mg Tablet, 80 MG PO DAILY, (Reported) Bupropion HCl 150 Mg Tab.er.24h, 150 MG PO DAILY, (Reported) Calcium Carbonate 200 Mg Calcium (500 Mg) Tab.chew, 200 MG PO DAILY PRN for HEARTBURN, (Reported) Carvedilol 12.5 Mg Tablet, 12.5 MG PO BID, (Reported) Citalopram Hydrobromide 20 Mg Tablet, 20 MG PO BID, (Reported) Dicyclomine HCl 20 Mg Tablet, 20 MG PO HS, (Reported) Docusate Sodium 100 Mg Capsule, 100 MG PO DAILY PRN for CONSTIPATION-1ST LINE, (Reported) Fluticasone Propionate 50 Mcg/Actuation Butler.susp, 1 SPRAY NS DAILY PRN for CONGESTION, (Reported) Glucosam HCl/Chondro Bah A/C/Mn 1 Each Capsule, 1 EACH PO DAILY, (Reported) Hydralazine HCl 50 Mg Tablet, 50 MG PO TID, (Reported) Hydrocodone/Acetaminophen 7.5 Mg-325 Mg Tablet, 1 EACH PO Q6H PRN for PAIN- MODERATE (5-7), (Reported) FILLED 06-28-2021 #15 Levalbuterol Tartrate 45 Mcg/Actuation Hfa.aer.ad, 1 PUFF PO DAILY PRN for SHORTNESS OF BREATH, (Reported) Loratadine 10 Mg Tablet, 10 MG PO DAILY PRN for ALLERGIES, (Reported) Magnesium Oxide 250 Mg Tablet, 250 MG PO DAILY, (Reported) Olmesartan Medoxomil 20 Mg Tablet, 20 MG PO DAILY, (Reported) Omeprazole 20 Mg Capsule.dr, 20 MG PO DAILY, (Reported) Pantoprazole Sodium 40 Mg Tablet.dr, 40 MG PO HS, (Reported) Valsartan 320 Mg Tablet, 320 MG PO DAILY, (Reported) Past Medical/Social/Family Hx Patient Social History Tobacco Use?: No Use of E-Cig and/or Vaping dev: No Substance use?: No Alcohol Use?: No Pt stated abuse/neglect: No Immunizations Up To Date Influenza Vaccine Up-to-Date: Yes; Up-to-Date First/Initial COVID19 Vaccinat: 2020 Current Status status: No status: No Advance Directives: No Communicates: Verbally Primary Language: Bolivian Preferred Spoken Language: Bolivian Is interpretation needed?: No Sensory deficits: Vision impairment Implanted or Applied Medical D: None Review of Systems Constitutional: see HPI Sepsis Event Evaluation Height, Weight, BMI Height: '" Weight: lbs. oz. kg; 47.05 BMI Method: Exam Exam Patient acknowledged, consented, and participated in this virtual visit which was conducted using real time audio/video Vital Signs Date Time Temp Pulse Resp B/P (MAP) Pulse Ox O2 Delivery O2 Flow Rate FiO2 08/16/21 15:11 86 29 95 75.00 08/16/21 13:00 90 08/16/21 12:42 36.7 108 22 162/73 (102) 91 Vapotherm 90.00 35.00 08/16/21 10:44 93 Vapotherm 35.00 90 08/16/21 08:39 37.2 88 22 108/54 (72) 93 Vapotherm 85.00 35.00 08/16/21 07:28 93 Vapotherm 35.00 85 08/16/21 07:00 89 08/16/21 06:58 91 High Flow N/C 12.00 08/16/21 04:00 35.9 88 14 110/66 (81) 96 NIV Bilevel 60.00 08/16/21 02:23 83 36 93 60.00 08/16/21 01:45 38.8 112 92 32 08/16/21 01:18 82 36 93 60.00 08/16/21 01:00 83 08/16/21 00:59 86 High Flow N/C 15.00 08/16/21 00:33 37.6 87 22 122/77 (92) 90 Nasal Cannula 6.00 08/15/21 20:00 Nasal Cannula 6.00 08/15/21 19:44 37.8 96 22 130/80 (97) 90 Nasal Cannula 3.00 08/15/21 19:01 94 08/15/21 16:18 37.8 85 22 116/67 (83) 90 Nasal Cannula 3.00 I & O 08/16/21 07:00 Intake Total 1550 ml Balance 1550 ml Height & Weight Height: '" Weight: lbs. oz. kg; 47.05 BMI Method: General Appearance: No Apparent Distress, WD/WN HEENT: PERRL/EOMI, Pharynx Normal Neck: Normal Inspection, Supple Respiratory: No Accessory Muscle Use, Decreased Breath Sounds; No Wheezing Cardiovascular: Regular Rate, Rhythm, No Murmur Capillary Refill: Less Than 3 Seconds Extremity: Normal Inspection, No Pedal Edema Neurologic/Psychiatric: Alert, Oriented x3 Skin: Normal Color, Warm/Dry Results Lab Laboratory Tests 08/15/21 08:32 08/16/21 06:48 Assessment/Plan Assessment/Plan 1 DANG DUFF MD Aug 16, 2021 15:34
--- NOTE | 2021-08-16 15:56 | Diagnostic Imaging Report ---
INDICATION: Hypoxia. Frontal chest obtained at 3:05 p.m. and compared to 08/15/2021. FINDINGS: There is prominent cardiomegaly. There are extensive bilateral infiltrates, right worse than left, with central vascular congestion. There is no pneumothorax or significant-sized pleural effusion. IMPRESSION: Prominent cardiomegaly with central vascular congestion and interstitial edema. Patchy bilateral infiltrates are present, most prominent in the right lung base. Overall stable appearance compared to the previous study given the difference in technique. Dictated by: Dictated on workstation # [id number]
[2021-08-16] MEDS: RT--FLUTICASONE/SALMETEROL 232-14 (AIRDUO RespiCLICK) IH SCH (18:34)
[2021-08-16] MEDS: ALPRAZolam 0.5 MG (XANAX) TAB PO PRN (20:01)
[2021-08-17] MEDS: RT-ALBUTEROL/IPRATROPIUM 3 ML (DUONEB) VIAL INH SCH ×6 (02:03→22:26)
[2021-08-17 03:51] VITALS: BP 157/72
[2021-08-17] MEDS: hydrALAZINE (APRESOLINE) 25 MG TAB PO SCH ×3 (04:00→22:05)
[2021-08-17] MEDS: DICYCLOMINE 10 MG (BENTYL) CAP PO SCH ×4 (04:01→19:50)
[2021-08-17 05:50] LABS: BASOPHILS % (AUTO) 0 % (0-10); EOSINOPHILS % (AUTO) 0 % (0-10); HEMATOCRIT 28 % (35-52); HEMOGLOBIN 9.2 g/dL (11.5-16.0); LYMPHOCYTES # (AUTO) 0.8 10^3/uL (1.0-4.0); LYMPHOCYTES % (AUTO) 9 % (12-44); MEAN CORPUSCULAR HEMOGLOBIN 28 pg (25-34); MEAN CORPUSCULAR HGB CONC 33 g/dL (32-36); MEAN CORPUSCULAR VOLUME 83 fL (80-99); MEAN PLATELET VOLUME 11.6 fL (9.0-12.2); MONOCYTES # (AUTO) 0.5 10^3/uL (0.0-1.0); MONOCYTES % (AUTO) 5 % (0-12); NEUTROPHILS # (AUTO) 7.5 10^3/uL (1.8-7.8); NEUTROPHILS % (AUTO) 85 % (42-75); PLATELET COUNT 264 10^3/uL (130-400); WHITE BLOOD COUNT 8.9 10^3/uL (4.3-11.0)
[2021-08-17 05:54] LABS: ALBUMIN 3.1 GM/DL (3.2-4.5); POTASSIUM 3.1 MMOL/L (3.6-5.0)
[2021-08-17 05:56] LABS: CALCIUM 8.4 MG/DL (8.5-10.1)
[2021-08-17 05:57] LABS: TOTAL PROTEIN 6.2 GM/DL (6.4-8.2)
[2021-08-17 05:58] LABS: BILIRUBIN,TOTAL 0.5 MG/DL (0.1-1.0)
[2021-08-17 06:00] LABS: CREATININE SERUM 0.74 MG/DL (0.60-1.30)
[2021-08-17] MEDS: RT--FLUTICASONE/SALMETEROL 232-14 (AIRDUO RespiCLICK) IH SCH ×2 (07:14→18:24)
[2021-08-17 07:49] VITALS: BP 132/74
[2021-08-17] MEDS: cefTRIAXone 1 GM PRE-MIX 50 ML IV SCH (09:36)
[2021-08-17] MEDS: SENNOSIDES 8.6 MG (SENOKOT) TAB PO SCH ×2 (09:41→19:51)
[2021-08-17] MEDS: buPROPion 75 MG (WELLBUTRIN) TAB PO SCH ×2 (09:41→19:55)
[2021-08-17] MEDS: DOCUSATE SODIUM 100 MG (COLACE) CAP PO SCH ×2 (09:41→19:50)
[2021-08-17] MEDS: amLODIPine 10 MG (NORVASC) TAB PO SCH (09:42)
[2021-08-17] MEDS: LORATADINE (CLARITIN) 10 MG TAB PO SCH (09:49)
[2021-08-17] MEDS: PANTOPRAZOLE 40 MG (PROTONIX) TAB PO SCH (09:49)
--- NOTE | 2021-08-17 11:22 | Pulmonary Progress Note ---
Subjective Date Seen by a Provider: Aug 17, 2021 Time Seen by a Provider: 11:17 Subjective/Events-last exam Available chart/vitals/labs/images reviewed. Video assessment done using telemetry ICU camera, rest of exam as per RN. Discussion with the RN, exam as per RN. Hospital course She is admitted with call for the fever for about a week prior to the admission associated with the vomiting and diarrhea. She is found to be hypoxic and currently requiring Vapotherm. She states that she is feeling better than when she can. Deity improved. There is a question of for possible pheochromocytoma entertained. She also had a hypertension. She is being followed by an [facility] boner in [place]. Today I made a video visit and discussed with the patient and the bedside RN. Review of Systems ROS PER BED SIDE RN Sepsis Event Evaluation Height, Weight, BMI Height: '" Weight: lbs. oz. kg; 47.05 BMI Method: Focused Exam Lactate Level 08/15/21 08:32: Lactic Acid Level 2.55*H 08/15/21 12:00: Lactic Acid Level 1.06 Exam Exam Patient acknowledged, consented, and participated in this virtual visit which was conducted using real time audio/video Vital Signs Date Time Temp Pulse Resp B/P (MAP) Pulse Ox O2 Delivery O2 Flow Rate FiO2 08/17/21 10:36 94 Vapotherm 30.00 90 08/17/21 08:46 NIV Bilevel 08/17/21 07:49 37.2 95 28 132/74 (93) 97 NIV Bilevel 65.00 08/17/21 07:15 94 25 95 65.00 08/17/21 07:00 92 08/17/21 03:51 36.4 82 32 157/72 (100) 99 NIV Bilevel 08/17/21 02:04 88 24 98 65.00 08/17/21 01:00 81 08/16/21 23:04 35.4 82 28 123/58 (79) 100 NIV Bilevel 08/16/21 22:08 86 27 98 65.00 08/16/21 21:00 35.4 08/16/21 20:07 38.0 79 19 104/55 (71) 100 NIV Bilevel 08/16/21 20:02 38.1 08/16/21 19:50 NIV Bilevel 08/16/21 19:08 99 08/16/21 18:35 88 30 95 75.00 08/16/21 15:26 36.5 79 18 104/56 (72) 97 NIV Bilevel 08/16/21 15:11 86 29 95 75.00 08/16/21 13:00 90 08/16/21 12:42 36.7 108 22 162/73 (102) 91 Vapotherm 90.00 35.00 I & O 08/17/21 07:00 Intake Total 4570 ml Output Total 250 ml Balance 4320 ml Height & Weight Height: '" Weight: lbs. oz. kg; 47.05 BMI Method: General Appearance: No Apparent Distress, WD/WN HEENT: PERRL/EOMI, Pharynx Normal Neck: Normal Inspection, Supple Respiratory: No Accessory Muscle Use, Decreased Breath Sounds; No Wheezing Cardiovascular: Regular Rate, Rhythm, No Murmur Capillary Refill: Less Than 3 Seconds Extremity: Normal Inspection, No Pedal Edema Neurologic/Psychiatric: Alert, Oriented x3 Skin: Normal Color, Warm/Dry Other comments PE PER RN Results Lab Laboratory Tests 08/16/21 06:48 08/17/21 05:27 Assessment/Plan Assessment/Plan 1. Multifocal pneumonia community-acquired 2. Lactic acidosis improving 3. Acute hypoxic respiratory failure currently on Vapotherm improving. 4. 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 5. Hypertension. 6. Morbid obesity. Recommendations 1. Continue Vapotherm and wean as tolerated 2. Continue Rocephin and azithromycin as ordered by the primary care physician 3. DVT prophylaxis and ulcer prophylaxis. 4. IV hydralazine as needed. 5. Patient needs to lose weight and is counseled. 6. Continue Coreg amlodipine and hydralazine orally and adjust dosing as needed. Critical Care: Critically Ill Patient Time spent with patient (mins): 20 MEMO HICKEY MD Aug 17, 2021 11:22
[2021-08-17] MEDS ORDERED: KCL 20 MEQ TAB (K-DUR) PO NR ×2 (11:45→17:00)
[2021-08-17 11:48] VITALS: BP 122/72
[2021-08-17] MEDS: ENOXAPARIN 40 MG/0.4 ML (LOVENOX) SYR SC SCH (12:23)
--- NOTE | 2021-08-17 12:55 | Physical Therapy Progress Note ---
Therapy Progress Note Patient is to remain on BiPap per RT with the exception of eating. PT attempted to see patient,however, patient declined stating, "I just want to work on breathing." Will attempt in a.m. 1 ref FRANCIS DUBOSE PT Aug 17, 2021 12:55
--- NOTE | 2021-08-17 13:08 | Occupational Ther Daily Note ---
OT Current Status-Daily Note Subjective Pt with RN returning from [facility] upon OT arrival, agreeable to tx. Mental Status/Objective Patient Orientation: Person, Place, Situation Attachments: Oxygen (Vapotherm) ADL-Treatment Therapy Code Descriptions/Definitions Functional [place] Measure: 0=Not Assessed/NA 4=Minimal Assistance 1=Total Assistance 5=Supervision or Setup 2=Maximal Assistance 6=Modified [place] 3=Moderate Assistance 7=Complete IndependenceSCALE: Activities may be completed with or without assistive devices. 7-Bdptvqkqwi-pcgmury completes the activity by him/herself with no assistance from a helper. 5-Set-up or Clean-up Assistance-helper sets up or cleans up; patient completes activity. [place] assists only prior to or following the activity. 4-Supervision or Touching Assistance-helper provides verbal cues and/or touching/steadying and/or contact guard assistance as patient completes activity. Assistance may be provided throughout the activity or intermittently. 3-Partial/Moderate Assistance-helper does LESS THAN HALF the effort. [place] lifts, holds or supports trunk or limbs, but provides less than half the effort. 2-Substantial/Maximal Assistance-helper does MORE THAN HALF the effort. [place] lifts or holds trunk or limbs and provides more than half the effort. 9-Ptpumfdsc-lftdky does ALL the effort. Patient does none of the effort to complete the activity. Or, the assistance of 2 or more helpers is required for the patient to complete the activity. If activity was not attempted, code reason: 7-Patient Refused. 9-Not Applicable-not attempted and the patient did not perform the activity before the current illness, exacerbation or injury. 10-Not Attempted due to Environmental Limitations-(lack of equipment, weather restraints, etc.). 88-Not Attempted due to Medical Conditions or Safety Concerns. Other Treatment Pt remained in bed throughout duration of tx. She declined all ADLs at this time, but was agreeable to BUE exercises to increase strength and endurance needed for ADLs and functional transfers. She completed 2x10 of the following BUE exercise with the yellow Theraband (light resistance): tricep extensions, shoulder abductions, and scaption. Post tx, pt left in bed with call light within reach and all needs met. Education OT Patient Education: Correct positioning, Energy conservation, Exercise program, Progress toward Goal/Update tx plan, Purpose of tx/functional activities, Rehab process Teaching Recipient: Patient Teaching Methods: Demonstration, Discussion Response to Teaching: Verbalize Understanding, Return Demonstration OT Retirement Goals Retirement Goals Time Frame: Sep 10, 2021 Toileting Hygiene (QC): 4 Shower/Bathe Self (QC): 4 Lower Body Dressing (QC): 4 Additional Goals: 1-Demonstrate ADL Tasks, 2-Verbalize Understanding, 3- ImproveStrength/Zeenat 1=Demonstrate adherence to instructed precautions during ADL tasks. 2=Patient will verbalize/demonstrate understanding of assistive devices/modifications for ADL. 3=Patient will improve strength/tolerance for activity to enable patient to perform ADL's. OT Education/Plan Problem List/Assessment Assessment: Decreased Activ Tolerance, Decreased UE Strength, Impaired Funct Balance, Impaired I ADL's, Impaired Self-Care Skills Discharge Recommendations Plan/Recommendations: Continue POC Treatment Plan/Plan of Care Patient would benefit from OT for education, treatment and training to promote independence in ADL's, mobility, safety and/or upper extremity function for ADL's. Plan of Care: ADL Retraining, Functional Mobility, Group Exercise/Act as Ind, UE Funct Exercise/Act Treatment Duration: Sep 10, 2021 Frequency: 3 times per week (3-5x/wk) Estimated Hrs Per Day: .25 hour per day Rehab Potential: Fair Time/GCodes Start Time: 11:15 Stop Time: 11:27 Total Time Billed (hr/min): 12 Billed Treatment Time 1, Ex JUSTUS PALM OT Aug 17, 2021 13:08
[2021-08-17 16:27] VITALS: BP 113/69
--- NOTE | 2021-08-17 17:13 | Progress Note - Hospitalist ---
Subjective HPI/CC On Admission Date Seen by Provider: Aug 17, 2021 Time Seen by Provider: 10:15 Mariam Solis is a 70 year old female with PMH HTN, HLD, depression, insomnia, seasonal allergies, morbid obesity, who presented with shortness of breath. She reports having fevers and chills. She has had a cough. She denies chest pain. She denies abdominal pain. She denies nausea, vomiting, diarrhea. She was hospitalized one month ago in due to hypertension. There was concern for pheochromocytoma and she is taking several blood pressure medications and awaiting further lab results. Subjective/Events-last exam She is doing better. She is off the BiPAP. She is not having any confusion. She does not feel short of breath. Focused Exam Lactate Level 08/15/21 08:32: Lactic Acid Level 2.55*H 08/15/21 12:00: Lactic Acid Level 1.06 Objective Exam Vital Signs Vital Signs Date Time Temp Pulse Resp B/P (MAP) Pulse Ox O2 Delivery O2 Flow Rate FiO2 08/17/21 16:27 37.1 100 18 113/69 (84) 97 Vapotherm 90.00 30.00 08/17/21 14:42 90 Capillary Refill : Less Than 3 Seconds General Appearance: No Apparent Distress, Obese Respiratory: No Respiratory Distress, Decreased Breath Sounds Cardiovascular: Regular Rate, Rhythm, No Murmur Gastrointestinal: Normal Bowel Sounds, Soft Extremity: Normal Inspection, No Pedal Edema Neurologic/Psychiatric: Alert, Normal Mood/Affect Results/Procedures Lab Laboratory Tests 08/17/21 05:27 Patient resulted labs reviewed. Imaging: Reviewed Imaging Report Assessment/Plan Assessment and Plan Assess & Plan/Chief Complaint Severe sepsis Multifocal pneumonia Acute respiratory failure with hypoxia CHIKIS Continue Levaquin Vapotherm BIPAP at night Pulmonology following Hypertension Possible pheochromocytoma Continue Coreg, Amlodipine, and Hydralazine Holding Valsartan IV Hydralazine as needed HLD GERD Depression Continue home meds Morbid obesity Clinically significant, no acute management needs DVT prophylaxis: Lovenox Lactic acidosis, resolved Diagnosis/Problems Diagnosis/Problems (1) Severe sepsis Status: Acute (2) Pneumonia Status: Acute Qualifiers: Pneumonia type: due to unspecified organism Laterality: bilateral Lung location: unspecified part of lung Qualified Codes: J18.9 - Pneumonia, unspecified organism (3) Acute respiratory failure with hypoxia Status: Acute (4) Lactic acidosis Status: Resolved Resolution Date/Time: 08/17/21 @ 17:13 (5) HTN (hypertension) Status: Chronic (6) GERD (gastroesophageal reflux disease) Status: Chronic (7) HLD (hyperlipidemia) Status: Chronic (8) Depression Status: Chronic (9) Morbid obesity Status: Chronic STEVO BUSH MD Aug 17, 2021 17:13
[2021-08-17] MEDS: MAGIC MOUTHWASH (ADULT) PO SCH ×8 (18:59→22:04)
[2021-08-17] MEDS: ALPRAZolam 0.5 MG (XANAX) TAB PO PRN (19:50)
[2021-08-17 19:53] VITALS: BP 128/74
[2021-08-17] MEDS: MELATONIN 3 MG TABLET PO PRN (20:08)
[2021-08-17] MEDS ORDERED: MAGIC MOUTHWASH, ADULT 155 ML BOTTLE PO SCH (21:00)
[2021-08-17 23:26] VITALS: BP 108/63
[2021-08-18] MEDS: ENOXAPARIN 40 MG/0.4 ML (LOVENOX) SYR SC SCH ×3 (00:09→23:41)
[2021-08-18] MEDS: RT-ALBUTEROL/IPRATROPIUM 3 ML (DUONEB) VIAL INH SCH ×6 (02:19→21:51)
[2021-08-18 04:36] VITALS: BP 115/66
[2021-08-18] MEDS: hydrALAZINE (APRESOLINE) 25 MG TAB PO SCH ×3 (04:50→21:06)
[2021-08-18] MEDS: DICYCLOMINE 10 MG (BENTYL) CAP PO SCH ×4 (04:50→22:03)
[2021-08-18 05:52] LABS: BASOPHILS % (AUTO) 0 % (0-10); EOSINOPHILS # (AUTO) 0.1 10^3/uL (0.0-0.3); EOSINOPHILS % (AUTO) 1 % (0-10); HEMATOCRIT 28 % (35-52); HEMOGLOBIN 9.1 g/dL (11.5-16.0); LYMPHOCYTES # (AUTO) 1.2 10^3/uL (1.0-4.0); LYMPHOCYTES % (AUTO) 14 % (12-44); MEAN CORPUSCULAR HEMOGLOBIN 27 pg (25-34); MEAN CORPUSCULAR HGB CONC 32 g/dL (32-36); MEAN CORPUSCULAR VOLUME 84 fL (80-99); MEAN PLATELET VOLUME 10.9 fL (9.0-12.2); MONOCYTES # (AUTO) 0.7 10^3/uL (0.0-1.0); MONOCYTES % (AUTO) 8 % (0-12); NEUTROPHILS # (AUTO) 6.1 10^3/uL (1.8-7.8); NEUTROPHILS % (AUTO) 75 % (42-75); PLATELET COUNT 293 10^3/uL (130-400); WHITE BLOOD COUNT 8.1 10^3/uL (4.3-11.0)
[2021-08-18 06:09] LABS: POTASSIUM 3.6 MMOL/L (3.6-5.0)
[2021-08-18 06:10] LABS: CALCIUM 8.7 MG/DL (8.5-10.1)
[2021-08-18 06:11] LABS: TOTAL PROTEIN 5.9 GM/DL (6.4-8.2)
[2021-08-18 06:13] LABS: BILIRUBIN,TOTAL 0.5 MG/DL (0.1-1.0)
[2021-08-18 06:14] LABS: PHOSPHORUS 2.2 MG/DL (2.3-4.7)
[2021-08-18 06:15] LABS: CREATININE SERUM 0.7 MG/DL (0.60-1.30)
[2021-08-18 06:18] LABS: MAGNESIUM 1.8 MG/DL (1.6-2.4)
[2021-08-18] MEDS: RT--FLUTICASONE/SALMETEROL 232-14 (AIRDUO RespiCLICK) IH SCH ×2 (07:26→21:07)
[2021-08-18 07:31] VITALS: BP 110/65
[2021-08-18] MEDS: buPROPion 75 MG (WELLBUTRIN) TAB PO SCH ×2 (09:05→21:06)
[2021-08-18] MEDS: POT PHOS/NA PHOS (K-PHOS NEUTRAL) PO SCH ×2 (09:05→21:06)
[2021-08-18] MEDS: PANTOPRAZOLE 40 MG (PROTONIX) TAB PO SCH (09:05)
[2021-08-18] MEDS: amLODIPine 10 MG (NORVASC) TAB PO SCH (09:06)
[2021-08-18] MEDS: LORATADINE (CLARITIN) 10 MG TAB PO SCH (09:06)
[2021-08-18] MEDS: SENNOSIDES 8.6 MG (SENOKOT) TAB PO SCH ×2 (09:07→21:06)
[2021-08-18] MEDS: DOCUSATE SODIUM 100 MG (COLACE) CAP PO SCH ×2 (09:07→21:06)
[2021-08-18] MEDS: MAGIC MOUTHWASH (ADULT) PO SCH ×16 (09:08→21:07)
--- NOTE | 2021-08-18 10:28 | Pulmonary Progress Note ---
Subjective Date Seen by a Provider: Aug 18, 2021 Time Seen by a Provider: 10:28 Subjective/Events-last exam Available chart/vitals/labs/images reviewed. Video assessment done using telemetry Vidyo IPAD camera, rest of exam as per RN. Discussion with the RN, exam as per RN. Hospital course Patient today is feeling somewhat better. Still requiring Vapotherm. No fever or cough present. No chest pain or abdominal pain. Potassium is normal today and phosphorus is low. I will supplement potassium phosphate tablets. Review of Systems ROS PER BED SIDE RN Sepsis Event Evaluation Height, Weight, BMI Height: '" Weight: lbs. oz. kg; 47.05 BMI Method: Focused Exam Lactate Level 08/15/21 12:00: Lactic Acid Level 1.06 Time of Focused Exam: 10:20 Exam Exam Patient acknowledged, consented, and participated in this virtual visit which was conducted using real time audio/video Vital Signs Date Time Temp Pulse Resp B/P (MAP) Pulse Ox O2 Delivery O2 Flow Rate FiO2 08/18/21 07:31 37.0 89 18 110/65 (80) 93 Vapotherm 90.00 30.00 08/18/21 07:28 95 Vapotherm 30.00 90 08/18/21 07:00 86 08/18/21 04:36 36.5 83 22 115/66 (82) 91 Vapotherm 90.00 30.00 08/18/21 02:19 92 Vapotherm 30.00 90 08/18/21 01:00 85 08/17/21 23:26 37.3 93 22 108/63 (78) 94 Vapotherm 90.00 30.00 08/17/21 22:27 96 Vapotherm 30.00 90 08/17/21 19:53 36.2 100 22 128/74 (92) 94 Vapotherm 90.00 30.00 08/17/21 19:50 Vapotherm 08/17/21 19:00 97 08/17/21 18:24 96 Vapotherm 30.00 90 08/17/21 16:27 37.1 100 18 113/69 (84) 97 Vapotherm 90.00 30.00 08/17/21 14:42 96 Vapotherm 30.00 90 08/17/21 13:00 97 08/17/21 11:48 36.4 99 20 122/72 (89) 94 Vapotherm 90.00 30.00 08/17/21 10:36 94 Vapotherm 30.00 90 I & O 08/18/21 07:00 Intake Total 2945 ml Balance 2945 ml Height & Weight Height: '" Weight: lbs. oz. 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 Multifocal pneumonia community-acquired clinically improving 2. Lactic acidosis improving 3. Acute hypoxic respiratory failure currently on Vapotherm improving. 4. 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 5. Hypertension. 6. Morbid obesity. Recommendations 1. Continue Vapotherm and wean as tolerated 2. Continue Rocephin and azithromycin as ordered by the primary care physician 3. DVT prophylaxis and ulcer prophylaxis. 4. IV hydralazine as needed. 5. Patient needs to lose weight and is counseled. 6. Continue Coreg amlodipine and hydralazine orally and adjust dosing as needed. 7. will repeat cxr in AM Critical Care: Critically Ill Patient Time spent with patient (mins): 15 MEMO HICKEY MD Aug 18, 2021 10:28
--- NOTE | 2021-08-18 10:52 | Physical Therapy Daily Note ---
PT Daily Note-Current Subjective Pt. in bed, agreeable to Rx. Pain Location: No Pain Reported Mental Status Patient Orientation: Normal For Age Attachments: Oxygen (Bi PAP) Transfers SCALE: Activities may be completed with or without assistive devices. 5-Rhinebmjue-vwagfjv completes the activity by him/herself with no assistance from a helper. 5-Set-up or Clean-up Assistance-helper sets up or cleans up; patient completes activity. [place] assists only prior to or following the activity. 4-Supervision or Touching Assistance-helper provides verbal cues and/or touching/steadying and/or contact guard assistance as patient completes activity. Assistance may be provided throughout the activity or intermittently. 3-Partial/Moderate Assistance-helper does LESS THAN HALF the effort. [place] lifts, holds or supports trunk or limbs, but provides less than half the effort. 2-Substantial/Maximal Assistance-helper does MORE THAN HALF the effort. [place] lifts or holds trunk or limbs and provides more than half the effort. 7-Ugaowkgab-emfbcm does ALL the effort. Patient does none of the effort to complete the activity. Or, the assistance of 2 or more helpers is required for the patient to complete the activity. If activity was not attempted, code reason: 7-Patient Refused. 9-Not Applicable-not attempted and the patient did not perform the activity before the current illness, exacerbation or injury. 10-Not Attempted due to Environmental Limitations-(lack of equipment, weather restraints, etc.). 88-Not Attempted due to Medical Conditions or Safety Concerns. Roll Left & Right (QC): 6 Sit to Lying (QC): 6 Lying to Sitting/Side of Bed(Q: 6 Sit to Stand (QC): 6 Chair/Ltj-qw-Jlqas Xfer(QC): 6 SBA for all TRFs Gait Training Gait Assistive Device: FWW side stepped left to right at EOB with FWW approx 15 ft total needed instruction and demonstration for moving FWW sideways etc, sequencing etc Exercises Supine Ex: Ankle pumps, Quad Set, Rolling, Glut sets, Heel Slides, Short Arc Quads, Straight leg raise, Hip abd/add Supine Reps: 15 Seated Therapy Exercises: Ankle pumps, Sit to stand, Long arc quads Seated Reps: 10 Standing: Heel/toe raises, Marching, Weight shifts Standing Reps: 10 Treatments TRFs, pre gait, therex as above Assessment Current Status: Good Progress PT Attic Fans Mechanic Goals Attic Fans Mechanic Goals PT Alf Goals Time Frame: Aug 28, 2021 Roll Left & Right (QC): 6 Sit to Lying (QC): 6 Lying-Sitting on Side/Bed(QC): 6 Sit to Stand (QC): 6 Chair/Uoi-lx-Vazmq Xfer(QC): 6 Toilet Transfer (QC): 6 Walk 10 feet (QC): 6 Walk 50ft with 2 Turns (QC): 6 Walk 150 ft (QC): 6 PT Plan Treatment/Plan Treatment Plan: Continue Plan of Care Treatment Plan: Bed Mobility, Education, Functional Activity Zeenat, Functional Strength, Gait, Safety, Therapeutic Exercise, Transfers Treatment Duration: Aug 28, 2021 Frequency: 6 times per week Estimated Hrs Per Day: .25 hour per day Patient and/or Family Agrees t: Yes Safety Risks/Education Patient Education: Transfer Techniques, Correct Positioning, Safety Issues Teaching Recipient: Patient Teaching Methods: Demonstration, Discussion Response to Teaching: Verbalize Understanding, Return Demonstration, Reinforcement Needed Time/GCodes Time In: 1025 Time Out: 1045 Total Billed Treatment Time: 20 Total Billed Treatment 1,EX20m IRAM ATKINS REVIEW MANAGER Aug 18, 2021 10:52
--- NOTE | 2021-08-18 11:21 | Occupational Ther Daily Note ---
OT Current Status-Daily Note Subjective Pt stated she is doing well today and is agreeable to OT tx. Family member in room during tx. ADL-Treatment Therapy Code Descriptions/Definitions Functional [place] Measure: 0=Not Assessed/NA 4=Minimal Assistance 1=Total Assistance 5=Supervision or Setup 2=Maximal Assistance 6=Modified [place] 3=Moderate Assistance 7=Complete IndependenceSCALE: Activities may be completed with or without assistive devices. 0-Kcsewamkva-jnejrio completes the activity by him/herself with no assistance from a helper. 5-Set-up or Clean-up Assistance-helper sets up or cleans up; patient completes activity. [place] assists only prior to or following the activity. 4-Supervision or Touching Assistance-helper provides verbal cues and/or touching/steadying and/or contact guard assistance as patient completes activity. Assistance may be provided throughout the activity or intermittently. 3-Partial/Moderate Assistance-helper does LESS THAN HALF the effort. [place] lifts, holds or supports trunk or limbs, but provides less than half the effort. 2-Substantial/Maximal Assistance-helper does MORE THAN HALF the effort. [place] lifts or holds trunk or limbs and provides more than half the effort. 5-Tktccaqfd-dvzshq does ALL the effort. Patient does none of the effort to complete the activity. Or, the assistance of 2 or more helpers is required for the patient to complete the activity. If activity was not attempted, code reason: 7-Patient Refused. 9-Not Applicable-not attempted and the patient did not perform the activity before the current illness, exacerbation or injury. 10-Not Attempted due to Environmental Limitations-(lack of equipment, weather restraints, etc.). 88-Not Attempted due to Medical Conditions or Safety Concerns. Other Treatment Pt completed BUE strengthening exercises to increase strength and activity tolerance with yellow theraband. Pt declined any ADLs at this time. Pt in bed at end of tx with call light in reach and all needs met. OT Usp Goals Dry Chain Worker Goals Time Frame: Sep 10, 2021 Toileting Hygiene (QC): 4 Shower/Bathe Self (QC): 4 Lower Body Dressing (QC): 4 Additional Goals: 1-Demonstrate ADL Tasks, 2-Verbalize Understanding, 3- ImproveStrength/Zeenat 1=Demonstrate adherence to instructed precautions during ADL tasks. 2=Patient will verbalize/demonstrate understanding of assistive device s/modifications for ADL. 3=Patient will improve strength/tolerance for activity to enable patient to perform ADL's. OT Education/Plan Problem List/Assessment Assessment: Decreased Activ Tolerance, Decreased UE Strength, Impaired I ADL's, Impaired Self-Care Skills Discharge Recommendations Plan/Recommendations: Continue POC Treatment Plan/Plan of Care Patient would benefit from OT for education, treatment and training to promote independence in ADL's, mobility, safety and/or upper extremity function for ADL's. Plan of Care: ADL Retraining, Functional Mobility, Group Exercise/Act as Ind, UE Funct Exercise/Act Treatment Duration: Sep 10, 2021 Frequency: 3 times per week (3-5x/wk) Estimated Hrs Per Day: .25 hour per day Rehab Potential: Fair Time/GCodes Start Time: 11:06 Stop Time: 11:16 Total Time Billed (hr/min): 10 Billed Treatment Time 1 visit, EX (10min) Karolina Borden Aug 18, 2021 11:21
[2021-08-18 11:45] VITALS: BP 111/68
[2021-08-18 15:33] VITALS: BP 124/61
--- NOTE | 2021-08-18 18:10 | Progress Note - Hospitalist ---
Subjective HPI/CC On Admission Date Seen by Provider: Aug 18, 2021 Time Seen by Provider: 11:55 Mariam Solis is a 70 year old female with PMH HTN, HLD, depression, insomnia, seasonal allergies, morbid obesity, who presented with shortness of breath. She reports having fevers and chills. She has had a cough. She denies chest pain. She denies abdominal pain. She denies nausea, vomiting, diarrhea. She was hospitalized one month ago in due to hypertension. There was concern for pheochromocytoma and she is taking several blood pressure medications and awaiting further lab results. Subjective/Events-last exam She is feeling a bit better today. She slept with the Vapotherm on. She denies pain. She has no complaints. Focused Exam Time of Focused Exam: 10:20 Objective Exam Vital Signs Vital Signs Date Time Temp Pulse Resp B/P (MAP) Pulse Ox O2 Delivery O2 Flow Rate FiO2 08/18/21 15:33 36.7 89 20 124/61 (82) 90 Vapotherm 80.00 25.00 08/18/21 15:06 90 Capillary Refill : Less Than 3 Seconds General Appearance: No Apparent Distress, Obese Respiratory: Lungs Clear, No Respiratory Distress Cardiovascular: Regular Rate, Rhythm, No Murmur Gastrointestinal: Normal Bowel Sounds, Soft Extremity: Normal Inspection, No Pedal Edema Neurologic/Psychiatric: Alert, No Motor/Sensory Deficits, Normal Mood/Affect Skin: Normal Color, Warm/Dry Results/Procedures Lab Laboratory Tests 08/18/21 05:44 Patient resulted labs reviewed. Imaging: Reviewed Imaging Report Assessment/Plan Assessment and Plan Assess & Plan/Chief Complaint Multifocal pneumonia Acute respiratory failure with hypoxia CHIKIS Continue Levaquin Vapotherm, wean as able Pulmonology following Hypertension Possible pheochromocytoma Well controlled Continue Coreg, Amlodipine, and Hydralazine Holding Valsartan IV Hydralazine as needed HLD GERD Depression Continue home meds Morbid obesity Clinically significant, no acute management needs DVT prophylaxis: Lovenox Severe sepsis, resolved Lactic acidosis, resolved Diagnosis/Problems Diagnosis/Problems (1) Severe sepsis Status: Acute (2) Pneumonia Status: Acute Qualifiers: Pneumonia type: due to unspecified organism Laterality: bilateral Lung location: unspecified part of lung Qualified Codes: J18.9 - Pneumonia, unspecified organism (3) Acute respiratory failure with hypoxia Status: Acute (4) Lactic acidosis Status: Resolved Resolution Date/Time: 08/17/21 @ 17:13 (5) HTN (hypertension) Status: Chronic (6) GERD (gastroesophageal reflux disease) Status: Chronic (7) HLD (hyperlipidemia) Status: Chronic (8) Depression Status: Chronic (9) Morbid obesity Status: Chronic STEVO BUSH MD Aug 18, 2021 18:10
[2021-08-18 19:42] VITALS: BP 163/69
[2021-08-18 23:16] VITALS: BP 129/62
[2021-08-18] MEDS: MELATONIN 3 MG TABLET PO PRN (23:41)
[2021-08-18] MEDS: ACETAMINOPHEN 325 MG TABLET PO PRN (23:41)
[2021-08-18] MEDS: ALPRAZolam 0.5 MG (XANAX) TAB PO PRN (23:41)
[2021-08-19] VITALS (7 sets, daily range): BP systolic 117–149; BP diastolic 58–79
[2021-08-19] MEDS: RT-ALBUTEROL/IPRATROPIUM 3 ML (DUONEB) VIAL INH SCH ×6 (02:29→22:01)
[2021-08-19 05:35] LABS: BASOPHILS # (AUTO) 0.1 10^3/uL (0.0-0.1); BASOPHILS % (AUTO) 1 % (0-10); EOSINOPHILS # (AUTO) 0.3 10^3/uL (0.0-0.3); EOSINOPHILS % (AUTO) 2 % (0-10); HEMATOCRIT 28 % (35-52); LYMPHOCYTES # (AUTO) 1.6 10^3/uL (1.0-4.0); LYMPHOCYTES % (AUTO) 15 % (12-44); MEAN CORPUSCULAR HEMOGLOBIN 27 pg (25-34); MEAN CORPUSCULAR HGB CONC 32 g/dL (32-36); MEAN CORPUSCULAR VOLUME 85 fL (80-99); MEAN PLATELET VOLUME 10.6 fL (9.0-12.2); MONOCYTES # (AUTO) 0.9 10^3/uL (0.0-1.0); MONOCYTES % (AUTO) 9 % (0-12); NEUTROPHILS # (AUTO) 7.4 10^3/uL (1.8-7.8); NEUTROPHILS % (AUTO) 72 % (42-75); PLATELET COUNT 321 10^3/uL (130-400); WHITE BLOOD COUNT 10.3 10^3/uL (4.3-11.0)
[2021-08-19 05:47] LABS: POTASSIUM 3.7 MMOL/L (3.6-5.0)
[2021-08-19 05:48] LABS: CALCIUM 8.9 MG/DL (8.5-10.1)
[2021-08-19 05:49] LABS: TOTAL PROTEIN 5.7 GM/DL (6.4-8.2)
[2021-08-19 05:51] LABS: BILIRUBIN,TOTAL 0.5 MG/DL (0.1-1.0)
[2021-08-19 05:53] LABS: CREATININE SERUM 0.66 MG/DL (0.60-1.30)
[2021-08-19] MEDS: hydrALAZINE (APRESOLINE) 25 MG TAB PO SCH ×3 (06:13→22:12)
[2021-08-19] MEDS: DICYCLOMINE 10 MG (BENTYL) CAP PO SCH ×4 (06:13→20:08)
[2021-08-19] MEDS: RT--FLUTICASONE/SALMETEROL 232-14 (AIRDUO RespiCLICK) IH SCH ×2 (07:13→18:32)
--- NOTE | 2021-08-19 08:26 | Diagnostic Imaging Report ---
INDICATION: Pneumonia. TIME OF EXAM: 4:51 AM Correlation is made with prior chest from 08/16/2021. FINDINGS: Heart is enlarged but stable. There are congestive changes noted with perihilar and bibasilar infiltrates. This does appear to be somewhat improved since exam 3 days earlier. No effusion or pneumothorax is seen. IMPRESSION: Improving congestive changes when compared with examination 3 days earlier. Dictated by: Dictated on workstation # [id number]
[2021-08-19] MEDS: SENNOSIDES 8.6 MG (SENOKOT) TAB PO SCH ×2 (09:56→20:13)
[2021-08-19] MEDS: POT PHOS/NA PHOS (K-PHOS NEUTRAL) PO SCH ×2 (09:56→20:08)
[2021-08-19] MEDS: LORATADINE (CLARITIN) 10 MG TAB PO SCH (09:56)
[2021-08-19] MEDS: PANTOPRAZOLE 40 MG (PROTONIX) TAB PO SCH (09:56)
[2021-08-19] MEDS: buPROPion 75 MG (WELLBUTRIN) TAB PO SCH ×2 (09:56→20:08)
[2021-08-19] MEDS: DOCUSATE SODIUM 100 MG (COLACE) CAP PO SCH ×2 (09:56→20:08)
[2021-08-19] MEDS: amLODIPine 10 MG (NORVASC) TAB PO SCH (09:57)
[2021-08-19] MEDS: MAGIC MOUTHWASH (ADULT) PO SCH ×16 (09:57→20:08)
--- NOTE | 2021-08-19 10:51 | Physical Therapy Daily Note ---
PT Daily Note-Current Subjective Patient agrees to PT. Mental Status Patient Orientation: Normal For Age Attachments: Oxygen (vapotherm 70%/30L) Transfers SCALE: Activities may be completed with or without assistive devices. 1-Enlthmnifw-pvrqwnz completes the activity by him/herself with no assistance from a helper. 5-Set-up or Clean-up Assistance-helper sets up or cleans up; patient completes activity. [place] assists only prior to or following the activity. 4-Supervision or Touching Assistance-helper provides verbal cues and/or touching/steadying and/or contact guard assistance as patient completes activity. Assistance may be provided throughout the activity or intermittently. 3-Partial/Moderate Assistance-helper does LESS THAN HALF the effort. [place] lifts, holds or supports trunk or limbs, but provides less than half the effort. 2-Substantial/Maximal Assistance-helper does MORE THAN HALF the effort. [place] lifts or holds trunk or limbs and provides more than half the effort. 8-Ayzvnqssq-oapwxs does ALL the effort. Patient does none of the effort to complete the activity. Or, the assistance of 2 or more helpers is required for the patient to complete the activity. If activity was not attempted, code reason: 7-Patient Refused. 9-Not Applicable-not attempted and the patient did not perform the activity before the current illness, exacerbation or injury. 10-Not Attempted due to Environmental Limitations-(lack of equipment, weather restraints, etc.). 88-Not Attempted due to Medical Conditions or Safety Concerns. Lying to Sitting/Side of Bed(Q: 6 Sit to Stand (QC): 6 Chair/Jgc-rl-Rgtva Xfer(QC): 6 Gait Training Distance: 10'x 3 Walk 10 feet (QC): 6 Gait Assistive Device: FWW Exercises Seated Therapy Exercises: Ankle pumps, Long arc quads, Hip flexion Seated Reps: 15 (2 sets) Assessment Patient does c/o SOA with minimal activity. Patient up in recliner with needs met. PT encouraged patient to perform OOB activity PRN during day. Patient reports she took off her O2 last night and walked around her room. Education with patient on importance of asking for assistance and to not remove O2 unless a professional states she can. Patient voices understanding. Increase activity as tolerated by patient. PT Forensic Artist Goals Forensic Artist Goals PT Forensic Artist Goals Time Frame: Aug 28, 2021 Roll Left & Right (QC): 6 Sit to Lying (QC): 6 Lying-Sitting on Side/Bed(QC): 6 Sit to Stand (QC): 6 Chair/Qic-xs-Jahxz Xfer(QC): 6 Toilet Transfer (QC): 6 Walk 10 feet (QC): 6 Walk 50ft with 2 Turns (QC): 6 Walk 150 ft (QC): 6 PT Plan Treatment/Plan Treatment Plan: Continue Plan of Care Treatment Plan: Bed Mobility, Education, Functional Activity Zeenat, Functional Strength, Gait, Safety, Therapeutic Exercise, Transfers Treatment Duration: Aug 28, 2021 Frequency: 6 times per week Estimated Hrs Per Day: .25 hour per day Patient and/or Family Agrees t: Yes Time/GCodes Time In: 1012 Time Out: 1023 Total Billed Treatment Time: 11 Total Billed Treatment 1 visit EX 11 min FRANCIS DUBOSE PT Aug 19, 2021 10:51
--- NOTE | 2021-08-19 11:24 | Occupational Ther Daily Note ---
OT Current Status-Daily Note Subjective Pt in recliner with family member and nursing in room. Argeed to OT tx. Mental Status/Objective Patient Orientation: Normal For Age Attachments: Oxygen, Telemetry ADL-Treatment Therapy Code Descriptions/Definitions Functional [place] Measure: 0=Not Assessed/NA 4=Minimal Assistance 1=Total Assistance 5=Supervision or Setup 2=Maximal Assistance 6=Modified [place] 3=Moderate Assistance 7=Complete IndependenceSCALE: Activities may be completed with or without assistive devices. 3-Sjxywbgfqr-ftucfqj completes the activity by him/herself with no assistance from a helper. 5-Set-up or Clean-up Assistance-helper sets up or cleans up; patient completes activity. [place] assists only prior to or following the activity. 4-Supervision or Touching Assistance-helper provides verbal cues and/or touching/steadying and/or contact guard assistance as patient completes activity. Assistance may be provided throughout the activity or intermittently. 3-Partial/Moderate Assistance-helper does LESS THAN HALF the effort. [place] lifts, holds or supports trunk or limbs, but provides less than half the effort. 2-Substantial/Maximal Assistance-helper does MORE THAN HALF the effort. [place] lifts or holds trunk or limbs and provides more than half the effort. 7-Kzjmxjvqn-jsyxdw does ALL the effort. Patient does none of the effort to complete the activity. Or, the assistance of 2 or more helpers is required for the patient to complete the activity. If activity was not attempted, code reason: 7-Patient Refused. 9-Not Applicable-not attempted and the patient did not perform the activity before the current illness, exacerbation or injury. 10-Not Attempted due to Environmental Limitations-(lack of equipment, weather restraints, etc.). 88-Not Attempted due to Medical Conditions or Safety Concerns. Other Treatment Pt completed hair brushing in recliner then participated in yellow theraband e xercise to increase BUE strength and activity tolerance. Pt completed 10 reps each of elbow flexion/extension, scaption and horizontal shoulder abduction/adduction OT Facilities Planner Goals Nursing Home Goals Time Frame: Sep 10, 2021 Toileting Hygiene (QC): 4 Shower/Bathe Self (QC): 4 Lower Body Dressing (QC): 4 Additional Goals: 1-Demonstrate ADL Tasks, 2-Verbalize Understanding, 3-Imp roveStrength/Zeenat 1=Demonstrate adherence to instructed precautions during ADL tasks. 2=Patient will verbalize/demonstrate understanding of assistive devices/modifications for ADL. 3=Patient will improve strength/tolerance for activity to enable patient to perform ADL's. OT Education/Plan Problem List/Assessment Assessment: Decreased Activ Tolerance, Decreased UE Strength, Impaired Funct Balance, Impaired I ADL's, Impaired Self-Care Skills Discharge Recommendations Plan/Recommendations: Continue POC Treatment Plan/Plan of Care Patient would benefit from OT for education, treatment and training to promote independence in ADL's, mobility, safety and/or upper extremity function for ADL's. Plan of Care: ADL Retraining, Functional Mobility, Group Exercise/Act as Ind, UE Funct Exercise/Act Treatment Duration: Sep 10, 2021 Frequency: 3 times per week (3-5x/wk) Estimated Hrs Per Day: .25 hour per day Rehab Potential: Fair Time/GCodes Start Time: 11:04 Stop Time: 11:17 Total Time Billed (hr/min): 13 Billed Treatment Time 1 visit, EX (13min) Karolina Borden Aug 19, 2021 11:24
[2021-08-19] MEDS: ENOXAPARIN 40 MG/0.4 ML (LOVENOX) SYR SC SCH ×2 (12:47→23:56)
--- NOTE | 2021-08-19 15:31 | Progress Note - Hospitalist ---
Subjective HPI/CC On Admission Date Seen by Provider: Aug 19, 2021 Time Seen by Provider: 10:40 Mariam Solis is a 70 year old female with PMH HTN, HLD, depression, insomnia, seasonal allergies, morbid obesity, who presented with shortness of breath. She reports having fevers and chills. She has had a cough. She denies chest pain. She denies abdominal pain. She denies nausea, vomiting, diarrhea. She was hospitalized one month ago in due to hypertension. There was concern for pheochromocytoma and she is taking several blood pressure medications and awaiting further lab results. Subjective/Events-last exam She is feeling better. She is not short of breath. She has no complaints. Focused Exam Time of Focused Exam: 10:20 Objective Exam Vital Signs Vital Signs Date Time Temp Pulse Resp B/P (MAP) Pulse Ox O2 Delivery O2 Flow Rate FiO2 08/19/21 15:04 94 Vapotherm 30.00 60 08/19/21 13:00 81 08/19/21 11:27 37.0 18 120/73 (89) Capillary Refill : Less Than 3 Seconds General Appearance: No Apparent Distress, Obese Respiratory: Lungs Clear, No Respiratory Distress Cardiovascular: Regular Rate, Rhythm, No Murmur Gastrointestinal: Normal Bowel Sounds, Soft Extremity: Normal Inspection, No Pedal Edema Skin: Normal Color, Warm/Dry Results/Procedures Lab Laboratory Tests 08/19/21 05:07 Patient resulted labs reviewed. Imaging: Reviewed Imaging Report Assessment/Plan Assessment and Plan Assess & Plan/Chief Complaint Multifocal pneumonia Acute respiratory failure with hypoxia CHIKIS Continue Levaquin Vapotherm, wean as able Pulmonology following Hypertension Possible pheochromocytoma Well controlled Continue Coreg, Amlodipine, and Hydralazine Holding Valsartan IV Hydralazine as needed HLD GERD Depression Continue home meds Morbid obesity Clinically significant, no acute management needs DVT prophylaxis: Lovenox Severe sepsis, resolved Lactic acidosis, resolved Diagnosis/Problems Diagnosis/Problems (1) Severe sepsis Status: Acute (2) Pneumonia Status: Acute Qualifiers: Pneumonia type: due to unspecified organism Laterality: bilateral Lung location: unspecified part of lung Qualified Codes: J18.9 - Pneumonia, unspecified organism (3) Acute respiratory failure with hypoxia Status: Acute (4) Lactic acidosis Status: Resolved Resolution Date/Time: 08/17/21 @ 17:13 (5) HTN (hypertension) Status: Chronic (6) GERD (gastroesophageal reflux disease) Status: Chronic (7) HLD (hyperlipidemia) Status: Chronic (8) Depression Status: Chronic (9) Morbid obesity Status: Chronic STEVO BUSH MD Aug 19, 2021 15:31
[2021-08-19] MEDS: ALPRAZolam 0.5 MG (XANAX) TAB PO PRN (20:11)
[2021-08-19] MEDS: MELATONIN 3 MG TABLET PO PRN (20:11)
[2021-08-20] MEDS: RT-ALBUTEROL/IPRATROPIUM 3 ML (DUONEB) VIAL INH SCH ×4 (02:31→14:41)
[2021-08-20 04:02] VITALS: BP 125/74
[2021-08-20 05:30] LABS: BASOPHILS % (AUTO) 0 % (0-10); EOSINOPHILS # (AUTO) 0.3 10^3/uL (0.0-0.3); EOSINOPHILS % (AUTO) 3 % (0-10); HEMATOCRIT 27 % (35-52); HEMOGLOBIN 8.8 g/dL (11.5-16.0); LYMPHOCYTES # (AUTO) 1.7 10^3/uL (1.0-4.0); LYMPHOCYTES % (AUTO) 17 % (12-44); MEAN CORPUSCULAR HEMOGLOBIN 27 pg (25-34); MEAN CORPUSCULAR HGB CONC 33 g/dL (32-36); MEAN CORPUSCULAR VOLUME 83 fL (80-99); MEAN PLATELET VOLUME 10.3 fL (9.0-12.2); MONOCYTES # (AUTO) 0.8 10^3/uL (0.0-1.0); MONOCYTES % (AUTO) 8 % (0-12); NEUTROPHILS # (AUTO) 6.7 10^3/uL (1.8-7.8); NEUTROPHILS % (AUTO) 68 % (42-75); PLATELET COUNT 359 10^3/uL (130-400); WHITE BLOOD COUNT 9.8 10^3/uL (4.3-11.0)
[2021-08-20 05:46] LABS: ALBUMIN 2.9 GM/DL (3.2-4.5); POTASSIUM 3.6 MMOL/L (3.6-5.0)
[2021-08-20 05:48] LABS: CALCIUM 8.9 MG/DL (8.5-10.1)
[2021-08-20 05:49] LABS: TOTAL PROTEIN 5.6 GM/DL (6.4-8.2)
[2021-08-20 05:51] LABS: BILIRUBIN,TOTAL 0.6 MG/DL (0.1-1.0)
[2021-08-20 05:52] LABS: CREATININE SERUM 0.59 MG/DL (0.60-1.30)
[2021-08-20] MEDS: DICYCLOMINE 10 MG (BENTYL) CAP PO SCH ×3 (06:11→16:24)
[2021-08-20] MEDS: hydrALAZINE (APRESOLINE) 25 MG TAB PO SCH ×2 (06:12→16:24)
[2021-08-20] MEDS: RT--FLUTICASONE/SALMETEROL 232-14 (AIRDUO RespiCLICK) IH SCH (06:56)
[2021-08-20 07:12] VITALS: BP 126/60
[2021-08-20] MEDS: DOCUSATE SODIUM 100 MG (COLACE) CAP PO SCH (09:00)
[2021-08-20] MEDS: amLODIPine 10 MG (NORVASC) TAB PO SCH (09:21)
[2021-08-20] MEDS: LORATADINE (CLARITIN) 10 MG TAB PO SCH (09:21)
[2021-08-20] MEDS: POT PHOS/NA PHOS (K-PHOS NEUTRAL) PO SCH (09:22)
[2021-08-20] MEDS: buPROPion 75 MG (WELLBUTRIN) TAB PO SCH (09:22)
[2021-08-20] MEDS: PANTOPRAZOLE 40 MG (PROTONIX) TAB PO SCH (09:22)
[2021-08-20] MEDS: SENNOSIDES 8.6 MG (SENOKOT) TAB PO SCH (09:22)
[2021-08-20] MEDS: MAGIC MOUTHWASH (ADULT) PO SCH ×12 (09:24→16:32)
[2021-08-20] MEDS: ENOXAPARIN 40 MG/0.4 ML (LOVENOX) SYR SC SCH (11:18)
[2021-08-20 11:23] VITALS: BP 113/69
--- NOTE | 2021-08-20 11:53 | Physical Therapy Daily Note ---
PT Daily Note-Current Subjective Patient agrees to PT. Currently on O2 HF NC 5L Mental Status Patient Orientation: Normal For Age Attachments: Oxygen Transfers SCALE: Activities may be completed with or without assistive devices. 7-Gxbhuakazn-kjdrogp completes the activity by him/herself with no assistance from a helper. 5-Set-up or Clean-up Assistance-helper sets up or cleans up; patient completes activity. [place] assists only prior to or following the activity. 4-Supervision or Touching Assistance-helper provides verbal cues and/or touching/steadying and/or contact guard assistance as patient completes activity. Assistance may be provided throughout the activity or intermittently. 3-Partial/Moderate Assistance-helper does LESS THAN HALF the effort. [place] lifts, holds or supports trunk or limbs, but provides less than half the effort. 2-Substantial/Maximal Assistance-helper does MORE THAN HALF the effort. [place] lifts or holds trunk or limbs and provides more than half the effort. 3-Ighnzeobm-zdgbgc does ALL the effort. Patient does none of the effort to complete the activity. Or, the assistance of 2 or more helpers is required for the patient to complete the activity. If activity was not attempted, code reason: 7-Patient Refused. 9-Not Applicable-not attempted and the patient did not perform the activity before the current illness, exacerbation or injury. 10-Not Attempted due to Environmental Limitations-(lack of equipment, weather restraints, etc.). 88-Not Attempted due to Medical Conditions or Safety Concerns. Sit to Lying (QC): 6 Lying to Sitting/Side of Bed(Q: 6 Sit to Stand (QC): 6 Gait Training Distance: 150' in room Walk 10 feet (QC): 5 Walk 50 ft with 2 Turns(QC): 5 Walk 150 ft (QC): 5 Gait Assistive Device: Cane Single Point able to negotiate O2 tubing and use cane with ambulation without deviation and SAO2 >90% on O2. Assessment Patient much improved with gross motor skills and pulmonary function. PT to dismiss patient from services at this time due to independent LOF and ability to negotiate O2 tubing and use cane for ambulation. PT Station Worker Goals Nursing Home Goals PT Nursing Home Goals Time Frame: Aug 28, 2021 Roll Left & Right (QC): 6 Sit to Lying (QC): 6 Lying-Sitting on Side/Bed(QC): 6 Sit to Stand (QC): 6 Chair/Rri-qr-Lzwvf Xfer(QC): 6 Toilet Transfer (QC): 6 Walk 10 feet (QC): 6 Walk 50ft with 2 Turns (QC): 6 Walk 150 ft (QC): 6 PT Plan Treatment/Plan Treatment Plan: Discontinue PT Treatment Plan: Bed Mobility, Education, Functional Activity Zeenat, Functional Strength, Gait, Safety, Therapeutic Exercise, Transfers Treatment Duration: Aug 28, 2021 Frequency: 6 times per week Estimated Hrs Per Day: .25 hour per day Patient and/or Family Agrees t: Yes Time/GCodes Time In: 1053 Time Out: 1103 Total Billed Treatment Time: 10 Total Billed Treatment 1 visit FA 10 min FRANCIS DUBOSE PT Aug 20, 2021 11:53
--- NOTE | 2021-08-20 12:16 | Pulmonary Progress Note ---
Subjective Date Seen by a Provider: Aug 20, 2021 Time Seen by a Provider: 12:12 Subjective/Events-last exam Being followed for multi-focal PNA, Oxygen needs are less, was on vapotherm now on nasal cannula 5-6 lopm sith SpO2 in low 90's. I reviewed CXR from 08/19 which shows a stable enlarged heart with congestive changes which have improved. On po Levaquin and tomorrow is last day. Pt believes SpO2 did not go down much on walking. Has slight cough but no wheezing. no chest pain. Sepsis Event Evaluation Height, Weight, BMI Height: '" Weight: lbs. oz. kg; 47.05 BMI Method: Focused Exam Time of Focused Exam: 10:20 Exam Exam Patient acknowledged, consented, and participated in this virtual visit which was conducted using real time audio/video Vital Signs Date Time Temp Pulse Resp B/P (MAP) Pulse Ox O2 Delivery O2 Flow Rate FiO2 08/20/21 11:23 36.9 87 18 113/69 (84) 91 Nasal Cannula 08/20/21 09:36 91 High Flow N/C 6.00 08/20/21 08:00 Vapotherm 30.00 50 08/20/21 07:12 36.0 85 18 126/60 (82) 92 Vapotherm 70.00 30.00 08/20/21 07:00 88 08/20/21 06:57 93 Vapotherm 25.00 50 08/20/21 04:02 36.6 77 20 125/74 (91) 92 NIV Bilevel 08/20/21 02:31 93 NIV Bilevel 8.00 08/20/21 01:00 81 08/19/21 23:33 36.9 84 20 132/76 (94) 90 NIV Bilevel 08/19/21 22:02 91 NIV Bilevel 8.00 08/19/21 21:55 90 149/72 (97) 08/19/21 20:10 Vapotherm 30.00 50 08/19/21 19:27 37.0 93 18 148/72 (97) 92 Vapotherm 50.00 30.00 08/19/21 19:00 91 08/19/21 18:35 92 Vapotherm 30.00 50 08/19/21 18:32 92 Vapotherm 30.00 50 08/19/21 15:54 36.1 86 18 118/58 (78) 90 Vapotherm 70.00 30.00 08/19/21 15:04 94 Vapotherm 30.00 60 08/19/21 13:00 81 I & O 08/20/21 07:00 Intake Total 1920 ml Balance 1920 ml Height & Weight Height: '" Weight: lbs. oz. kg; 47.05 BMI Method: General Appearance: No Apparent Distress, Obese, Other (Speaks full sentances without SOB) HEENT: PERRL/EOMI, Normal ENT Inspection Neck: Normal Inspection Respiratory: Lungs Clear, No Respiratory Distress, Rhonci Cardiovascular: Regular Rate, Rhythm, No Murmur Capillary Refill: Less Than 3 Seconds Gastrointestinal: normal bowel sounds, non tender, soft Extremity: Normal Inspection, No Pedal Edema Neurologic/Psychiatric: Alert, No Motor/Sensory Deficits, Normal Mood/Affect Skin: Normal Color, Warm/Dry Results Lab Laboratory Tests 08/19/21 05:07 08/20/21 05:15 Assessment/Plan Assessment/Plan Progressive hypoxia -appears improved with less oxygen needs. continue on nasal cannula if SpO2 > 90%, I think there is probably a component of CHF based on yesterday's CXR though initial BNP was ok. Had cardiac work up in [facility]. BNP and reassess fluid status - will cont to use BIPAP most of the time at night. - CHANGE PRESSURE TO 20 /16 - as was titrated on last sleep study -add ICS for now - agree with CAP coverage , but with nausea, vomiting, and diarrhea should consider legionella - UA AG ordered - will change to levofloxacion po, last day tomorrow Hypertension - reported Possible pheochromocytoma-based on 24 hours urine collection. She thinks she was told has renal artery stenosis. - as per PCP CHIKIS - cont bipap 20 /16 nightly Morbid obesity DVT prophylaxis: Lovenox ELAINE DEVI MD Aug 20, 2021 12:16
--- NOTE | 2021-08-20 13:21 | Occupational Ther Daily Note ---
OT Current Status-Daily Note Subjective Pt EOB upon arrival with RT in room. Pt agreed to OT tx. Mental Status/Objective Patient Orientation: Normal For Age Attachments: Oxygen (5L) ADL-Treatment Therapy Code Descriptions/Definitions Functional [place] Measure: 0=Not Assessed/NA 4=Minimal Assistance 1=Total Assistance 5=Supervision or Setup 2=Maximal Assistance 6=Modified [place] 3=Moderate Assistance 7=Complete IndependenceSCALE: Activities may be completed with or without assistive devices. 3-Ebnzujabar-lujljyo completes the activity by him/herself with no assistance from a helper. 5-Set-up or Clean-up Assistance-helper sets up or cleans up; patient completes activity. [place] assists only prior to or following the activity. 4-Supervision or Touching Assistance-helper provides verbal cues and/or touching/steadying and/or contact guard assistance as patient completes activity. Assistance may be provided throughout the activity or intermittently. 3-Partial/Moderate Assistance-helper does LESS THAN HALF the effort. [place] lifts, holds or supports trunk or limbs, but provides less than half the effort. 2-Substantial/Maximal Assistance-helper does MORE THAN HALF the effort. [place] lifts or holds trunk or limbs and provides more than half the effort. 0-Ikfrkfeqy-aiwbki does ALL the effort. Patient does none of the effort to complete the activity. Or, the assistance of 2 or more helpers is required for the patient to complete the activity. If activity was not attempted, code reason: 7-Patient Refused. 9-Not Applicable-not attempted and the patient did not perform the activity before the current illness, exacerbation or injury. 10-Not Attempted due to Environmental Limitations-(lack of equipment, weather restraints, etc.). 88-Not Attempted due to Medical Conditions or Safety Concerns. Oral Hygiene (QC): 4 (set up) Toileting Hygiene (QC): 3 ([place]) Toilet Transfer (QC): 4 (SBA) Other Treatment Pt ambulated around room to increase activity tolerance required for ADLs with FWW at [facility]. Pt then sat EOB to completed BUE strengthening exercises with yellow theraband by completing elbow flexion/extension, scaption and punch outs for 10 reps on each side. Pt states that she does the exercises throughout the day. Pt ambulated to bathroom to complete toileting at [place] to ensure bottom was cleansed and oral hygiene at set up standing at sink side. Pt ambulated back to EOB with call light in reach and all needs met. OT Loan Servicing Representative Goals Loan Servicing Representative Goals Time Frame: Sep 10, 2021 Toileting Hygiene (QC): 4 Shower/Bathe Self (QC): 4 Lower Body Dressing (QC): 4 Additional Goals: 1-Demonstrate ADL Tasks, 2-Verbalize Understanding, 3- ImproveStrength/Zeenat 1=Demonstrate adherence to instructed precautions during ADL tasks. 2=Patient will verbalize/demonstrate understanding of assistive devices/modifications for ADL. 3=Patient will improve strength/tolerance for activity to enable patient to perform ADL's. OT Education/Plan Problem List/Assessment Assessment: Decreased Activ Tolerance, Decreased UE Strength, Impaired Funct Balance, Impaired I ADL's, Impaired Self-Care Skills Discharge Recommendations Plan/Recommendations: Continue POC Treatment Plan/Plan of Care Patient would benefit from OT for education, treatment and training to promote independence in ADL's, mobility, safety and/or upper extremity function for ADL's. Plan of Care: ADL Retraining, Functional Mobility, Group Exercise/Act as Ind, UE Funct Exercise/Act Treatment Duration: Sep 10, 2021 Frequency: 3 times per week (3-5x/wk) Estimated Hrs Per Day: .25 hour per day Rehab Potential: Fair Time/GCodes Start Time: 12:50 Stop Time: 13:12 Total Time Billed (hr/min): 22 Billed Treatment Time 1 visit, ADL (22min) Karolina Borden Aug 20, 2021 13:21
[2021-08-20] MEDS ORDERED: VALS160T29 PO (13:27)
[2021-08-20] MEDS ORDERED: LEVO500T81 PO (13:27)
--- NOTE | 2021-08-20 14:33 | Discharge Summary ---
Discharge Summary Hospital Course Was the Problem List Reviewed?: Yes Problems/Dx: (1) Severe sepsis Status: Acute (2) Pneumonia Status: Acute Qualifiers: Qualified Codes: J18.9 - Pneumonia, unspecified organism (3) Acute respiratory failure with hypoxia Status: Acute (4) Lactic acidosis Status: Resolved (5) HTN (hypertension) Status: Chronic (6) GERD (gastroesophageal reflux disease) Status: Chronic (7) HLD (hyperlipidemia) Status: Chronic (8) Depression Status: Chronic (9) Morbid obesity Status: Chronic Hospital Course Date of Admission: Aug 15, 2021 at 10:30 Admission Diagnosis : Severe sepsis due to multifocal pneumonia Family Physician/Provider: Yeny Lucio Date of Discharge: 08/20/21 Discharge Diagnosis: Severe sepsis due to multifocal pneumonia Hospital Course: Mariam Solis is a 70 year old female who was admitted with severe sepsis due to multifocal pneumonia. She was treated with IV antibiotics. She was requiring Vapotherm. She was already on BiPAP at night as an outpatient. Her oxygen requirement improved but she was still requiring 6 L continuously at the time of discharge. She will complete a course of Levaquin as an outpatient. She was recently admitted in [place] for hypertenison and is undergoing an evaluation for pheochromocytoma with an summer intern. Her blood pressure was well controlled during her stay. She should follow up with her PCP in about a week. Labs and Pending Lab Test: Laboratory Tests 08/20/21 05:15: White Blood Count 9.8, Red Blood Count 3.24L, Hemoglobin 8.8L, Hematocrit 27L, Mean Corpuscular Volume 83, Mean Corpuscular Hemoglobin 27, Mean Corpuscular Hemoglobin Concent 33, Red Cell Distribution Width 15.4H, Platelet Count 359, Mean Platelet Volume 10.3, Immature Granulocyte % (Auto) 3, Neutrophils (%) (Auto) 68, Lymphocytes (%) (Auto) 17, Monocytes (%) (Auto) 8, Eosinophils (%) (Auto) 3, Basophils (%) (Auto) 0, Neutrophils # (Auto) 6.7, Lymphocytes # (Auto) 1.7, Monocytes # (Auto) 0.8, Eosinophils # (Auto) 0.3, Basophils # (Auto) 0.0, Immature Granulocyte # (Auto) 0.3H, Sodium Level 140, Potassium Level 3.6, Chloride Level 104, Carbon Dioxide Level 22, Anion Gap 14, Blood Urea Nitrogen 9, Creatinine 0.59L, Estimat Glomerular Filtration Rate 97, BUN/Creatinine Ratio 15, Glucose Level 112H, Calcium Level 8.9, Corrected Calcium 9.8, Total Bilirubin 0.6, Aspartate Amino Transf (AST/SGOT) 43H, Alanine Aminotransferase (ALT/SGPT) 40, Alkaline Phosphatase 100, Total Protein 5.6L, Albumin 2.9L Microbiology 08/15/21 Blood Culture - Preliminary, Resulted No growth Home Meds Active Levofloxacin 500 Mg Tablet 500 Mg PO DAILY@11 5 Days Valsartan 160 Mg Tablet 160 Mg PO DAILY 30 Days Reported Pantoprazole Sodium 40 Mg Tablet.dr 40 Mg PO HS Tums (Calcium Carbonate) 200 Mg Calcium (500 Mg) Tab.chew 200 Mg PO DAILY PRN Magnesium (Magnesium Oxide) 250 Mg Tablet 250 Mg PO DAILY Stool Softener (Docusate Sodium) 100 Mg Capsule 100 Mg PO DAILY PRN Omeprazole 20 Mg Capsule.dr 20 Mg PO DAILY Glucosamine-Chondroitin Cap (Glucosam HCl/Chondro Bah A/C/Mn) 1 Each Capsule 1 Each PO DAILY Hydrocodone-Acetamin 7.5-325 (Hydrocodone/Acetaminophen) 7.5 Mg-325 Mg Tablet 1 Each PO Q6H PRN FILLED 06-28-2021 #15 Loratadine 10 Mg Tablet 10 Mg PO DAILY PRN Carvedilol 12.5 Mg Tablet 12.5 Mg PO BID Amlodipine Besylate 10 Mg Tablet 10 Mg PO DAILY Xopenex Hfa (Levalbuterol Tartrate) 45 Mcg/Actuation Hfa.aer.ad 1 Puff PO DAILY PRN Fluticasone Propionate 50 Mcg/Actuation [place].susp 1 [place] NS DAILY PRN Citalopram HBr (Citalopram Hydrobromide) 20 Mg Tablet 20 Mg PO BID Dicyclomine HCl 20 Mg Tablet 20 Mg PO HS Alprazolam 0.5 Mg Tablet 0.5 Mg PO HS PRN Bupropion Xl (Bupropion HCl) 150 Mg Tab.er.24h 150 Mg PO DAILY Olmesartan Medoxomil 20 Mg Tablet 20 Mg PO DAILY Atorvastatin Calcium 80 Mg Tablet 80 Mg PO DAILY Hydralazine HCl 50 Mg Tablet 50 Mg PO TID Assessment/Pt Instructions Take medications as prescribed. Follow up with your PCP in about a week. Return with worsening shortness of breath, chest pain, or if you feel like you are getting worse. Discharge Planning: >30 minutes discharge planning Discharge Instructions Discharge Diet: Low Sodium Diet Activity as Tolerated: Yes Consultations Pulmonology Discharge Physical Examination Vital Signs Vital Signs Date Time Temp Pulse Resp B/P (MAP) Pulse Ox O2 Delivery O2 Flow Rate FiO2 08/20/21 12:58 83 08/20/21 11:23 36.9 18 113/69 (84) 91 Nasal Cannula 08/20/21 09:36 6.00 08/20/21 08:00 50 General Appearance: No Apparent Distress, Obese Respiratory: Lungs Clear, No Respiratory Distress Cardiovascular: Regular Rate, Rhythm, No Murmur Gastrointestinal: Normal Bowel Sounds, Soft Extremity: Normal Inspection, No Pedal Edema Skin: Normal Color, Warm/Dry Neurologic/Psychiatric: Alert, Normal Mood/Affect Allergies: Coded Allergies: No Known Drug Allergies (Unverified , 05/31/21) Copy Copies To 1: ARNOLDO MOFFETT MD Discharge Summary Date of Admission Aug 15, 2021 at 10:30 Date of Discharge Discharge Date: Aug 20, 2021 Discharge Time: 14:28 Admission Diagnosis Severe sepsis due to pneumonia Consults/Procedures Consulations Pulmonology Discharge Diagnosis Severe sepsis Lactic acidosis Multifocal pneumonia Acute respiratory failure with hypoxia CHIKIS Hypertension Possible pheochromocytoma (1) Severe sepsis Status: Acute (2) Pneumonia Status: Acute Qualifiers: Qualified Codes: J18.9 - Pneumonia, unspecified organism (3) Acute respiratory failure with hypoxia Status: Acute (4) Lactic acidosis Status: Resolved (5) HTN (hypertension) Status: Chronic (6) GERD (gastroesophageal reflux disease) Status: Chronic (7) HLD (hyperlipidemia) Status: Chronic (8) Depression Status: Chronic (9) Morbid obesity Status: Chronic STEVO BUSH MD Aug 20, 2021 14:33
[2021-08-20 15:34] VITALS: BP 124/63
[2021-08-20 16:42] VITALS: BP 124/63
== END 2021-08-20 17:09 | disposition home or self-care (01) | DRG 871 ==
LOC: EDUNIT# 08:20 → ER 08:21 → 4TH 10:30
PROVIDERS: ADMIT Internal Medicine; ATTEND Internal Medicine
PROC: 5A09357 Assistance with Respiratory Ventilation, Less than 24 Consecutive Hours, Continuous Positive Airway Pressure (ICD-10-PCS; principal; 2021-08-16)
PROC: 5A0935A Assistance with Respiratory Ventilation, Less than 24 Consecutive Hours, High Flow/Velocity Cannula (ICD-10-PCS; 2021-08-16)
DX: A41.9 Sepsis, unspecified organism (principal); J18.9 Pneumonia, unspecified organism; J96.01 Acute respiratory failure with hypoxia; E87.2 Acidosis; Z68.42 Body mass index [BMI] 45.0-49.9, adult; R65.20 Severe sepsis without septic shock; I10 Essential (primary) hypertension; K21.9 Gastro-esophageal reflux disease without esophagitis; E78.5 Hyperlipidemia, unspecified; F32.A Depression, unspecified; Z20.822 Contact with and (suspected) exposure to COVID-19; E66.01 Morbid (severe) obesity due to excess calories; G47.33 Obstructive sleep apnea (adult) (pediatric); D35.00 Benign neoplasm of unspecified adrenal gland; G47.00 Insomnia, unspecified; J45.909 Unspecified asthma, uncomplicated; E87.6 Hypokalemia
CPT/HCPCS: 36415; 71045; 71046; 71250; 80053; 83605; 83735; 83880; 84100; 84145; 85007; 85025; 85027; 85610; 85730; 86141; 87040; 87636; 94640; 94660; 94760; 94761

== ENCOUNTER → 2021-08-31 | Outpatient (CLI) | payer MEDICARE ==
[~2021-08-31] MED LIST changes: +ALPR0.5T7 PO; +AMLO-251 PO; +AMLO-335 PO; +ATOR80TA76 PO; +BUPR150T24 PO; +CALC500T7 PO; +CARV12.53 PO; +CARV25TA PO; +CITA20TA9 PO; +DICY20TA PO; +DOCU-26 PO; +FLUT15.845 NS; -GADOTERATE 0.5 MMOL/ML (CLARISCAN) 20 ML VIAL IV ONE; +GLUC1CAP7 PO; +HYDR-3817 PO; +HYDR-3820 PO; +HYDR-3924 PO; +LEVO500T81 PO; +LORA-53 PO; +LORA10TA7 PO; +MAGN250T13 PO; +NF-XOP-HFA PO; +OLME20TA24 PO; +OMEP20CA18 PO; +PANT40SU PO; +PANT40TA52 PO; +VALS160T29 PO; +VALS320T15 PO
[2021-08-31 17:06] LABS: HEMATOCRIT 38 % (35-52); HEMOGLOBIN 11.7 g/dL (11.5-16.0); MEAN CORPUSCULAR HEMOGLOBIN 27 pg (25-34); MEAN CORPUSCULAR HGB CONC 31 g/dL (32-36); MEAN CORPUSCULAR VOLUME 88 fL (80-99); MEAN PLATELET VOLUME 9.7 fL (9.0-12.2); PLATELET COUNT 585 10^3/uL (130-400); WHITE BLOOD COUNT 10.3 10^3/uL (4.3-11.0)
[2021-08-31 17:16] LABS: POTASSIUM 3.5 MMOL/L (3.6-5.0)
[2021-08-31 17:17] LABS: CALCIUM 9.5 MG/DL (8.5-10.1)
[2021-08-31 17:18] LABS: TOTAL PROTEIN 7.3 GM/DL (6.4-8.2)
[2021-08-31 17:20] LABS: BILIRUBIN,TOTAL 0.6 MG/DL (0.1-1.0)
[2021-08-31 17:22] LABS: CREATININE SERUM 0.7 MG/DL (0.60-1.30)
--- NOTE | 2021-08-31 17:24 | Diagnostic Imaging Report ---
EXAMINATION: Chest 2 view HISTORY: Pneumonia COMPARISON: 08/19/2021 FINDINGS: There has been significant improvement in the previously seen airspace opacities which are mostly resolved. There is a small amount of atelectasis remaining in the left lung base. No pleural effusion or pneumothorax. The heart size is normal. There is pulmonary vascular redistribution. IMPRESSION: 1. Resolution of previously seen pneumonia. 2. Pulmonary vascular redistribution. Dictated by: Dictated on workstation # [id number]
== END ==
LOC: RAD 16:42
PROVIDERS: ATTEND Physician Assistant
DX: R91.8 Other nonspecific abnormal finding of lung field (principal); D64.9 Anemia, unspecified; E87.6 Hypokalemia
CPT/HCPCS: 36415; 71046; 80053; 85027

== ENCOUNTER → 2022-04-27 | Outpatient (CLI) | payer MEDICARE ==
[~2022-04-27] MED LIST changes: +LEVO-55 PO; -LEVO500T81 PO; +LORA-1389 PO; -LORA-53 PO
--- NOTE | 2022-04-27 11:25 | Diagnostic Imaging Report ---
Indication: Routine screening. Comparison is made with prior mammogram 03/22/2021 and 03/20/2020. 2-D and 3-D bilateral screening mammography was performed with CAD. CAD is utilized. The current study was also evaluated with a Computer Aided Detection (CAD) system. Scattered fibroglandular densities are identified bilaterally. Benign-appearing nodules in the left breast appears stable and most consistent with intraparenchymal lymph nodes. No spiculated mass or malignant-appearing microcalcifications are seen. Axillae are unremarkable. IMPRESSION: BI-RADS Category 2 No mammographic features suspicious for malignancy are identified. ACR BI-RADS Category 2: Benign findings. Result letter will be mailed to the patient. Note: At least 10% of breast cancer is not imaged by mammography. Dictated by: Dictated on workstation # [id number]
== END ==
LOC: RAD 06:55
PROVIDERS: ATTEND Internal Medicine Endocrinology, Diabetes & Metabolism
DX: Z12.31 Encounter for screening mammogram for malignant neoplasm of breast (principal)
CPT/HCPCS: 77063; 77067

== ENCOUNTER → 2022-05-16 | Outpatient (CLI) | payer MEDICARE ==
--- NOTE | 2022-05-16 14:49 | Diagnostic Imaging Report ---
EXAMINATION: Chest 2 view HISTORY: Shoulder pain. Palpitations. COMPARISON: 08/31/2021. FINDINGS: The lung volumes are normal. No focal consolidation is seen. No large pleural effusion or pneumothorax is seen. The cardiomediastinal silhouette is normal in size and contour. There is calcified aortic atherosclerotic plaque. No acute osseous abnormality is seen. IMPRESSION: 1. No acute pleuroparenchymal process. Dictated by: Dictated on workstation # [id number]
== END ==
LOC: CARD 14:15
PROVIDERS: ATTEND Physician Assistant
DX: R00.2 Palpitations (principal); M25.511 Pain in right shoulder
CPT/HCPCS: 71046; 93005

== ENCOUNTER → 2022-11-10 | Outpatient (CLI) | payer MEDICARE ==
--- NOTE | 2022-11-10 14:27 | Diagnostic Imaging Report ---
PROCEDURE: US right lower extremity venous. TECHNIQUE: Multiple real-time grayscale images were obtained over the right lower extremity in various projections. Additional spectral analysis and color Doppler duplex images were also obtained. INDICATION: Right lower extremity pain and swelling. There is no evidence of right lower extremity DVT. Right lower extremity deep venous system shows normal compressibility with normal response to augmentation and Valsalva. No fluid collection or mass is detected. IMPRESSION: No evidence of right lower extremity DVT. Dictated by: Dictated on workstation # [id number]
== END ==
LOC: RAD 13:30
PROVIDERS: ATTEND Nurse Practitioner Family
DX: M79.604 Pain in right leg (principal); R22.41 Localized swelling, mass and lump, right lower limb